=== PATIENT | male | born 1975 | race Caucasian/White ===

== ENCOUNTER 2017-09-21 10:39 | Emergency (ER) | payer OTHER ==
[~2017-09-21] VITALS: Ht 177.8 cm; Wt 83.9 kg
[2017-09-21] MEDS ORDERED: Hydrogen Peroxide 473ml Bottle TOPIC ONE (10:55)
[2017-09-21 10:59] VITALS: BP 133/90
[2017-09-21] MEDS ORDERED: Bacitracin Oint UD TOPIC ONE (11:00)
[2017-09-21] MEDS ORDERED: Tetanus/Diptheria/Pertussis Vaccine 0.5ml Syr IM ONE (11:00)
[2017-09-21] MEDS ORDERED: CEPHALEXIN500 MG ORAL (11:41)
[2017-09-21] MEDS ORDERED: BACITRACIN ZIN1 EACH TOPIC (11:41)
[2017-09-21 11:58] VITALS: BP 124/79
--- NOTE | 2017-09-21 14:36 | Emergency Room Report ---
History of Present Illness General Chief Complaint: Laceration Source: Patient Present Illness HPI Patient 42-year-old male presented after the injury to his left hand and finger. The patient stated he is right-hand dominant. Patient reports having accidentally cut himself with a knife. He was having initially some significant bleeding which had resolved after he applied pressure. Patient denied any fever. Her last tetanus vaccine. He denies any numbness or weakness. Allergies: Coded Allergies: No Known Allergies (Unverified , 09/21/17) Patient History Reviewed Nursing Documentation: PMH: Agreed; PSxH: Agreed Nursing Documentation-PMH Past Medical History: No History, Except For History Of Psychiatric Problem: Yes - Bipolar, anxiety Review of Systems All Other Systems: negative except mentioned in HPI Physical Exam Vital Signs Date Time Temp Pulse Resp B/P (MAP) Pulse Ox O2 Delivery O2 Flow Rate FiO2 09/21/17 10:42 98.1 106 19 133/90 98 98.1 General Appearance: well appearing, no apparent distress, alert, GCS 15 Head: normocephalic, atraumatic ENT: hearing grossly normal, normal voice Neck: full range of motion, supple Respiratory: no respiratory distress, speaking full sentences Gastrointestinal: normal inspection Musculoskeletal: other - finger laceration no active bleeding Neurologic: normal inspection, alert, oriented x3, responsive, normal gait Psychiatric: mood/affect normal Medical Decision Making Diagnostic Impression: Primary Impression: Laceration ER Course Patient presented for laceration. Differential diagnoses included foreign body , nerve injury, arterial injury among others. Patient has a benign exam and does not appear to require any further imaging or laboratory testing at this time. The patient declined x-ray imaging. The patient's wound will be left open due to prolonged time to presentation. The patient is advised to follow up with primary care doctor in 2-3 days. Patient is advised to return if any worsening condition or if any changes in status that are concerning. This report is dictated with [employer] bushing and broach operator software which may occasionally lead to discrepancies related to use of this software. Last Vital Signs Date Time Temp Pulse Resp B/P (MAP) Pulse Ox O2 Delivery O2 Flow Rate FiO2 09/21/17 11:58 98.1 100 19 124/79 99 98.1 Status: improved Disposition: HOME, SELF-CARE Condition: Stable Scripts Cephalexin* (KEFLEX*) 500 Mg Capsule 500 MG ORAL EVERY 12 HOURS, #28 CAP 0 Refills Prov: Nik Moctezuma MD 09/21/17 Bacitracin Zinc* (BACITRACIN ZINC*) 1 Each Packet 1 APPLIC TOPIC THREE TIMES A DAY, #15 PACKET Prov: Nik Moctezuma MD 09/21/17 Patient Instructions: Nonsutured Laceration Care Nik Moctezuma MD Sep 21, 2017 14:35
== END 2017-09-21 11:59 | disposition home or self-care (01) ==
LOC: EMR 10:58
DX: S61.211A Laceration without foreign body of left index finger without damage to nail, initial encounter (principal); W26.0XXA Contact with knife, initial encounter; Y92.9 Unspecified place or not applicable; Z23 Encounter for immunization
CPT/HCPCS: 90471; 90715; 99283

== ENCOUNTER 2017-12-26 09:22 | Inpatient (IN) | payer MEDICAID, OTHER ==
[2017-12-26] VITALS (17 sets, daily range): BP systolic 101–192; BP diastolic 49–121
[~2017-12-26] VITALS: Ht 180.3 cm; Wt 86.6 kg
[~2017-12-26 09:22] MED LIST: BACITRACIN ZIN1 EACH TOPIC; CEPHALEXIN500 MG ORAL
[2017-12-26] MEDS ORDERED: Sodium Chloride 500ML 500 ML IV ONE (09:28)
[2017-12-26] MEDS ORDERED: LORazepam Inj 2mg/ml 1ml ONE (09:30)
[2017-12-26] MEDS ORDERED: LORazepam Inj 2mg/ml 1ml IV ONE ×2 (09:30→10:30)
[2017-12-26 09:41] LABS: BASOPHILS % (AUTO) 1.1 % (0.0-2.0); EOSINOPHILS % (AUTO) 0.4 % (0.0-3.0); HEMATOCRIT 54.8 % (42.0-52.0); LYMPHOCYTES % (AUTO) 16.2 % (20.0-45.0); MEAN CORPUSCULAR VOLUME 89 FL (80-99); MONOCYTES % (AUTO) 12.2 % (1.0-10.0); NEUTROPHILS % (AUTO) 70.2 % (45.0-75.0); PLATELET COUNT 365 K/UL (150-450); RED BLOOD COUNT 6.16 M/UL (4.70-6.10); RED CELL DISTRIBUTION WIDTH 11.3 % (11.6-14.8); WHITE BLOOD COUNT 16.8 K/UL (4.8-10.8)
[2017-12-26 09:48] LABS: ANION GAP 14 mmol/L (5-15); BLOOD UREA NITROGEN 18 mg/dL (7-18); CALCIUM 9.5 MG/DL (8.5-10.1); CARBON DIOXIDE 23 MMOL/L (21-32); CHLORIDE 101 MMOL/L (98-107); CREATININE 1.3 MG/DL (0.55-1.30); POTASSIUM 3.3 MMOL/L (3.5-5.1); SODIUM 138 MMOL/L (136-145)
[2017-12-26 09:54] LABS: APPEARANCE,URINE CLEAR; BILIRUBIN, URINE NEGATIVE (NEGATIVE); COLOR,URINE PALE YELLOW; GLUCOSE, URINE (UA) NEGATIVE (NEGATIVE); KETONES,URINE 2+ (NEGATIVE); LEUKOCYTE ESTERASE ,URINE 1+ (NEGATIVE); NITRITE,URINE NEGATIVE (NEGATIVE); PH,URINE 6 (4.5-8.0); PROTEIN,URINE 2+ (NEGATIVE); UROBILINOGEN,URINE NORMAL MG/DL (0.0-1.0)
[2017-12-26 09:55] LABS: ALANINE AMINOTRANSFERASE 38 U/L (12-78); ALBUMIN 3.5 G/DL (3.4-5.0); ALBUMIN/GLOBULIN RATIO 0.7 (1.0-2.7); ALKALINE PHOSPHATASE 121 U/L (46-116); ASPARTATE AMINO TRANSFERASE 41 U/L (15-37); BILIRUBIN,TOTAL 1.4 MG/DL (0.2-1.0)
--- NOTE | 2017-12-26 10:05 | Diagnostic Imaging Report ---
Indication: Seizure Technique: Contiguous 5 mm thick transaxial imaging of the head obtained in a Siemens Sensation [address] scanner. Soft tissue and bone windows generated. Automatic Exposure Control was utilized. Total Dose length Product (DLP): [address] Dose Index Volume (CTDIvol): 0.15, 70.38 mGy Comparison: none Findings: The size and configuration of the cortical sulci, basal cisterns, and ventricles are within normal limits for age. There is no mass effect, midline shift, or edema identified. There is no evidence of acute hemorrhage or abnormal intra-axial or extra-axial fluid collections. The bones and soft tissues are unremarkable. Impression: No mass effect, edema or acute bleed. The CT scanner at [facility] is accredited by the [employer] and the scans are performed using dose optimization techniques as appropriate to a performed exam including Automatic Exposure control.
[2017-12-26 10:08] LABS: BILIRUBIN,DIRECT 0.2 MG/DL (0.0-0.3)
--- NOTE | 2017-12-26 10:47 | Diagnostic Imaging Report ---
Indication: Dyspnea Comparison: None A single view chest radiograph was obtained. Findings: Interstitium and pulmonary vascularity are prominent. Heart size is borderline. Fixation rods noted in the lower part of the thoracic spine. IMPRESSION: Suspected CHF
[2017-12-26] MEDS ORDERED: AMPHETAMINE SAL15 MG PO (11:55)
[2017-12-26] MEDS ORDERED: ALPRAZOLAM2 MG ORAL (11:55)
[2017-12-26] MEDS ORDERED: CLONIDINE1000 MCG/1 EP (11:55)
--- NOTE | 2017-12-26 12:39 | Emergency Room Report ---
History of Present Illness General Chief Complaint: Seizure Source: Patient, Significant Other, Medical Record Present Illness HPI 42yo M presents with excessive sleepiness and drowsiness, found at home difficult to arouse on the couch last night, per patient's fianc, he uses pills , and apparently drink half a small vial of liquid clonidine injectable formulation sometime last night around 7 or 8 PM. He was drowsy all night last night and the significant other monitored him and noticed that he would have episodes of apnea lasting 10-15 seconds, but then would wake up and refused to come in. Here he had a seizure versus possible syncope in the waiting room, I did not witness it, but patient was standing and then fell flat, and had one or 2 spastic movements. He has no history of seizure disorder. He does admit to using alcohol regularly, but not heavily.patient denies chest pain, shortness of breath, but does report his been having headaches for many months now. Allergies: Coded Allergies: No Known Allergies (Unverified , 09/21/17) Patient History Past Medical History: see triage record Reviewed Nursing Documentation: PMH: Agreed; PSxH: Agreed Nursing Documentation-PMH Past Medical History: No History, Except For Hx Cardiac Problems: No - substance abuse (opioid) Hx Hypertension: No Hx Pacemaker: No Hx Asthma: No Hx COPD: No Hx Diabetes: No Hx Cancer: No Hx Gastrointestinal Problems: No Hx Dialysis: No History Of Psychiatric Problem: Yes - Bipolar Hx Neurological Problems: Yes - T12 Fusion, back surgery Hx Cerebrovascular Accident: No Hx Seizures: No Review of Systems All Other Systems: negative except mentioned in HPI Physical Exam Vital Signs Date Time Temp Pulse Resp B/P (MAP) Pulse Ox O2 Delivery O2 Flow Rate FiO2 12/26/17 09:30 98.2 75 14 131/81 94 Nasal Cannula 4.0 Sp02 EP Interpretation: reviewed, normal General Appearance: alert, mild distress Head: normocephalic Eyes: bilateral eye normal inspection, bilateral eye PERRL, bilateral eye EOMI ENT: normal ENT inspection, hearing grossly normal, normal pharynx, no angioedema, normal voice, moist mucus membranes Neck: normal inspection, full range of motion, supple, supple/symm/no masses Respiratory: chest non-tender, lungs clear, normal breath sounds, no rhonchi, no respiratory distress, no retraction, no accessory muscle use, no wheezing, chest symmetrical, palpation of chest normal Cardiovascular #1: normal peripheral pulses, regular rate, rhythm, no edema, no gallop, no JVD, no murmur, no rub Cardiovascular #2: 2+ radial (R), 2+ radial (L) Gastrointestinal: normal inspection, non tender, soft, no mass, no guarding, no rebound Rectal: deferred Genitourinary: normal inspection, no CVA tenderness Musculoskeletal: back normal, gait/station normal, normal range of motion, non- tender, no calf tenderness Neurologic: alert, responsive, scalp specialist III-XII nml as tested, motor strength/tone normal, sensory intact, speech normal Psychiatric: judgement/insight normal, memory normal, mood/affect normal, no suicidal/homicidal ideation Skin: normal color, no rash, warm/dry, normal turgor Lymphatic: no adenopathy Procedures Critical Care Time Critical Care Time 55 mins excluding all procedures Medical Decision Making Diagnostic Impression: Primary Impression: Syncope Additional Impressions: Elevated troponin Clonidine overdose ER Course Patient took half a bottle of clonidine, liquid injectable form, small 10 mL bile is notable year, but there are no labels as to was prescribed to, and it is not an oral formulation. He also takes Adderall and Xanax. His tox screen is positive for benzodiazepines, his vital signs of been stable, he is not showing signs of hypotension, his troponin level was elevated and repeat troponin his climbing, but he's not having active chest pain, I suspect he may be had a distant demand ischemic episode last night from the clonidine use. He was given aspirin, admitted to Dr. Rausch to the stepdown unit. EKG Diagnostic Results EKG Time: 09:20 EP Interpretation: no stemi Rate: normal Rhythm: NSR ST Segments: no acute changes ASA given to the pt in ED: Yes Rhythm Strip Diag. Results Rhythm Strip Time: 12:35 EP Interpretation: yes Rate: 57 Rhythm: no PVC's, no ectopy Chest X-Ray Diagnostic Results Chest X-Ray Diagnostic Results : Chest X-Ray Ordered: Yes # of Views/Limited/Complete: 1 View Indication: Other EP Interpretation: Yes Interpretation: no consolidation, no effusion, no pneumothorax, no acute cardiopulmonary disease Impression: No acute disease Electronically Signed by: Ximena Jarvis MD CT/MRI/US Diagnostic Results CT/MRI/US Diagnostic Results : Imaging Test Ordered: brain ct Impression no acute dz Last Vital Signs Date Time Temp Pulse Resp B/P (MAP) Pulse Ox O2 Delivery O2 Flow Rate FiO2 12/26/17 10:30 98.2 18 178/110 94 Nasal Cannula 4.0 12/26/17 10:15 75 Disposition: ADMITTED INPATIENT Condition: Stable Referrals: [facility],REFERRING (PCP) XIMENA JARVIS M.D Dec 26, 2017 12:39
[2017-12-26] MEDS ORDERED: Enoxaparin 40mg Inj SUBQ SCH (14:00)
--- NOTE | 2017-12-26 14:41 | Cardiac Electrophysiology PN ---
Subjective Subjective EP consult dictated. [id number] Clonidine induced bradycardia Syncope Could be due to storm or hypotension or both due to Clonidine Echo EF 55% Troponin leak with no CP. DW Dr Horvath Objective Last 24 Hour Vital Signs Date Time Temp Pulse Resp B/P (MAP) Pulse Ox O2 Delivery O2 Flow Rate FiO2 12/26/17 13:43 98.1 55 25 173/105 99 Nasal Cannula 4.0 12/26/17 12:46 57 20 186/116 98 Nasal Cannula 4.0 12/26/17 12:00 56 21 188/119 98 Nasal Cannula 4.0 12/26/17 11:30 57 23 181/111 97 Nasal Cannula 4.0 12/26/17 11:00 56 24 192/117 97 Nasal Cannula 4.0 12/26/17 10:30 98.2 18 178/110 94 Nasal Cannula 4.0 12/26/17 10:15 75 18 Nasal Cannula 4.0 12/26/17 10:15 98.2 18 131/81 94 Nasal Cannula 4.0 12/26/17 09:30 98.2 75 14 131/81 94 Nasal Cannula 4.0 Laboratory Tests Test 12/26/17 09:20 12/26/17 09:30 12/26/17 11:35 Urine Color Pale yellow Urine Appearance Clear Urine pH 6 (4.5-8.0) Urine Specific [place] 1.020 (1.005-1.035) Urine Protein 2+ (NEGATIVE) H Urine Glucose (UA) Negative (NEGATIVE) Urine Ketones 2+ (NEGATIVE) H Urine Blood 2+ (NEGATIVE) H Urine Nitrite Negative (NEGATIVE) Urine Bilirubin Negative (NEGATIVE) Urine Urobilinogen Normal MG/DL (0.0-1.0) Urine Leukocyte Esterase 1+ (NEGATIVE) H Urine RBC 2-4 /HPF (0 - 0) H Urine WBC 0-2 /HPF (0 - 0) Urine Squamous Epithelial Cells Occasional /LPF Urine Bacteria Occasional /HPF (NONE) Urine Opiates Screen Negative (NEGATIVE) Urine Barbiturates Screen Negative (NEGATIVE) Phencyclidine (PCP) Screen Negative (NEGATIVE) Urine Amphetamines Screen Negative (NEGATIVE) Urine Benzodiazepines Screen Positive (NEGATIVE) H Urine Cocaine Screen Negative (NEGATIVE) Urine Marijuana (THC) Screen Negative (NEGATIVE) White Blood Count 16.8 K/UL (4.8-10.8) H Red Blood Count 6.16 M/UL (4.70-6.10) H Hemoglobin 18.0 G/DL (14.2-18.0) Hematocrit 54.8 % (42.0-52.0) H Mean Corpuscular Volume 89 FL (80-99) Mean Corpuscular Hemoglobin 29.2 PG (27.0-31.0) Mean Corpuscular Hemoglobin Concent 32.8 G/DL (32.0-36.0) Red Cell Distribution Width 11.3 % (11.6-14.8) L Platelet Count 365 K/UL (150-450) Mean Platelet Volume 7.5 FL (6.5-10.1) Neutrophils (%) (Auto) 70.2 % (45.0-75.0) Lymphocytes (%) (Auto) 16.2 % (20.0-45.0) L Monocytes (%) (Auto) 12.2 % (1.0-10.0) H Eosinophils (%) (Auto) 0.4 % (0.0-3.0) Basophils (%) (Auto) 1.1 % (0.0-2.0) Sodium Level 138 MMOL/L (136-145) Potassium Level 3.3 MMOL/L (3.5-5.1) L Chloride Level 101 MMOL/L (98-107) Carbon Dioxide Level 23 MMOL/L (21-32) Anion Gap 14 mmol/L (5-15) Blood Urea Nitrogen 18 mg/dL (7-18) Creatinine 1.3 MG/DL (0.55-1.30) Estimat Glomerular Filtration Rate > 60 mL/min (>60) Glucose Level 164 MG/DL (74-106) H Calcium Level 9.5 MG/DL (8.5-10.1) Total Bilirubin 1.4 MG/DL (0.2-1.0) H Direct Bilirubin 0.2 MG/DL (0.0-0.3) Aspartate Amino Transf (AST/SGOT) 41 U/L (15-37) H Alanine Aminotransferase (ALT/SGPT) 38 U/L (12-78) Alkaline Phosphatase 121 U/L (46-116) H Troponin I 0.356 ng/mL (0.000-0.056) 0.449 ng/mL (0.000-0.056) Total Protein 8.4 G/DL (6.4-8.2) H Albumin 3.5 G/DL (3.4-5.0) Globulin 4.9 g/dL Albumin/Globulin Ratio 0.7 (1.0-2.7) L Salicylates Level 2.6 ug/mL (2.8-20) L Acetaminophen Level 2 MCG/ML (10-30) L Phenytoin (Dilantin) Level 1.8 ug/mL (10-20) L Valproic Acid (Depakene) Level < 3 MCG/ML (50-100) L Carbamazepine (Tegretol) Level < 0.5 ug/mL (4.0-12.0) L Phenobarbital Level 1.2 ug/mL (15-40) L Serum Alcohol < 3 mg/dL HIV (1&2) Antibody Rapid Negative (NEGATIVE) Richard Conroy MD Dec 26, 2017 14:41
[2017-12-26] MEDS: HydrALAZINE 50mg tab ORAL SCH ×2 (14:54→22:03)
--- NOTE | 2017-12-26 15:28 | Infectious Diseases Prog Note ---
Assessment/Plan Problems: (1) Sepsis Assessment & Plan: with leukocytosis , will start ceftriaxone and azithromycin , pending blood culture (2) Pneumonia Assessment & Plan: suspect possible aspiration will start ceftriaxon and zithromax empirically , with aspiration precaution , keep HOB > 30 degree all the time (3) Syncope Subjective Allergies: Coded Allergies: No Known Allergies (Unverified , 09/21/17) Objective Vital Signs Last 24 Hour Vital Signs Date Time Temp Pulse Resp B/P (MAP) Pulse Ox O2 Delivery O2 Flow Rate FiO2 12/26/17 14:54 177/110 12/26/17 14:00 Nasal Cannula 2.0 Nasal Cannula 2.0 Nasal Cannula 2.0 12/26/17 13:43 98.1 55 25 173/105 99 Nasal Cannula 4.0 12/26/17 12:46 57 20 186/116 98 Nasal Cannula 4.0 12/26/17 12:00 56 21 188/119 98 Nasal Cannula 4.0 12/26/17 11:30 57 23 181/111 97 Nasal Cannula 4.0 12/26/17 11:00 56 24 192/117 97 Nasal Cannula 4.0 12/26/17 10:30 98.2 18 178/110 94 Nasal Cannula 4.0 12/26/17 10:15 75 18 Nasal Cannula 4.0 12/26/17 10:15 98.2 18 131/81 94 Nasal Cannula 4.0 12/26/17 09:30 98.2 75 14 131/81 94 Nasal Cannula 4.0 Height (Feet): 5 Height (Inches): 9.00 Weight (Pounds): 160 Laboratory Tests Test 12/26/17 09:20 12/26/17 09:30 12/26/17 11:35 Urine Color Pale yellow Urine Appearance Clear Urine pH 6 (4.5-8.0) Urine Specific [place] 1.020 (1.005-1.035) Urine Protein 2+ (NEGATIVE) H Urine Glucose (UA) Negative (NEGATIVE) Urine Ketones 2+ (NEGATIVE) H Urine Blood 2+ (NEGATIVE) H Urine Nitrite Negative (NEGATIVE) Urine Bilirubin Negative (NEGATIVE) Urine Urobilinogen Normal MG/DL (0.0-1.0) Urine Leukocyte Esterase 1+ (NEGATIVE) H Urine RBC 2-4 /HPF (0 - 0) H Urine WBC 0-2 /HPF (0 - 0) Urine Squamous Epithelial Cells Occasional /LPF Urine Bacteria Occasional /HPF (NONE) Urine Opiates Screen Negative (NEGATIVE) Urine Barbiturates Screen Negative (NEGATIVE) Phencyclidine (PCP) Screen Negative (NEGATIVE) Urine Amphetamines Screen Negative (NEGATIVE) Urine Benzodiazepines Screen Positive (NEGATIVE) H Urine Cocaine Screen Negative (NEGATIVE) Urine Marijuana (THC) Screen Negative (NEGATIVE) White Blood Count 16.8 K/UL (4.8-10.8) H Red Blood Count 6.16 M/UL (4.70-6.10) H Hemoglobin 18.0 G/DL (14.2-18.0) Hematocrit 54.8 % (42.0-52.0) H Mean Corpuscular Volume 89 FL (80-99) Mean Corpuscular Hemoglobin 29.2 PG (27.0-31.0) Mean Corpuscular Hemoglobin Concent 32.8 G/DL (32.0-36.0) Red Cell Distribution Width 11.3 % (11.6-14.8) L Platelet Count 365 K/UL (150-450) Mean Platelet Volume 7.5 FL (6.5-10.1) Neutrophils (%) (Auto) 70.2 % (45.0-75.0) Lymphocytes (%) (Auto) 16.2 % (20.0-45.0) L Monocytes (%) (Auto) 12.2 % (1.0-10.0) H Eosinophils (%) (Auto) 0.4 % (0.0-3.0) Basophils (%) (Auto) 1.1 % (0.0-2.0) Sodium Level 138 MMOL/L (136-145) Potassium Level 3.3 MMOL/L (3.5-5.1) L Chloride Level 101 MMOL/L (98-107) Carbon Dioxide Level 23 MMOL/L (21-32) Anion Gap 14 mmol/L (5-15) Blood Urea Nitrogen 18 mg/dL (7-18) Creatinine 1.3 MG/DL (0.55-1.30) Estimat Glomerular Filtration Rate > 60 mL/min (>60) Glucose Level 164 MG/DL (74-106) H Calcium Level 9.5 MG/DL (8.5-10.1) Total Bilirubin 1.4 MG/DL (0.2-1.0) H Direct Bilirubin 0.2 MG/DL (0.0-0.3) Aspartate Amino Transf (AST/SGOT) 41 U/L (15-37) H Alanine Aminotransferase (ALT/SGPT) 38 U/L (12-78) Alkaline Phosphatase 121 U/L (46-116) H Troponin I 0.356 ng/mL (0.000-0.056) 0.449 ng/mL (0.000-0.056) Total Protein 8.4 G/DL (6.4-8.2) H Albumin 3.5 G/DL (3.4-5.0) Globulin 4.9 g/dL Albumin/Globulin Ratio 0.7 (1.0-2.7) L Salicylates Level 2.6 ug/mL (2.8-20) L Acetaminophen Level 2 MCG/ML (10-30) L Phenytoin (Dilantin) Level 1.8 ug/mL (10-20) L Valproic Acid (Depakene) Level < 3 MCG/ML (50-100) L Carbamazepine (Tegretol) Level < 0.5 ug/mL (4.0-12.0) L Phenobarbital Level 1.2 ug/mL (15-40) L Serum Alcohol < 3 mg/dL HIV (1&2) Antibody Rapid Negative (NEGATIVE) Current Medications Medications (Trade) Dose Ordered Sig/Eliezer Route PRN Reason Start Time Stop Time Status Last Admin Dose Admin Acetaminophen (Tylenol) 650 mg Q4H PRN ORAL Mild Pain (Pain Scale 1-3) 12/26/17 14:00 01/25/18 13:59 Aspirin (ASA) 325 mg DAILY ORAL 12/26/17 14:15 12/26/17 23:59 12/26/17 14:14 Azithromycin 500 mg/Dextrose 275 ml @ 275 mls/hr Q24HRS IV 12/26/17 16:00 01/01/18 16:59 Ceftriaxone Sodium 2 gm/ Dextrose 55 ml @ 110 mls/hr Q24H IVPB 12/26/17 15:30 01/02/18 15:29 Dextrose (Dextrose 50%) 25 ml Q30M PRN IV Hypoglycemia 12/26/17 14:00 01/25/18 13:59 Dextrose (Dextrose 50%) 50 ml Q30M PRN IV Hypoglycemia 12/26/17 14:00 12/2/18 13:59 Enoxaparin Sodium (Lovenox) 40 mg Q24H SUBQ 12/26/17 14:00 01/25/18 13:59 12/26/17 14:56 Hydralazine HCl (Apresoline) 10 mg Q2H PRN IV SBP> 170 mmHg 12/26/17 14:45 01/25/18 14:44 Hydralazine HCl (Apresoline) 50 mg Q8HR ORAL 12/26/17 14:00 01/25/18 13:59 12/26/17 14:54 Ondansetron HCl (Zofran) 4 mg Q6H PRN IVP Nausea & Vomiting 12/26/17 14:00 01/25/18 13:59 Sodium Chloride 1,000 ml @ 100 mls/hr Q10H IVLG 12/26/17 14:00 01/25/18 13:59 12/26/17 14:30 Cirilo Nunez M.D. Dec 26, 2017 15:28
[2017-12-26] MEDS ORDERED: cefTRIAXone 2 GM in D5W 55 ML IVPB SCH (15:30)
[2017-12-26] MEDS ORDERED: Azithromycin 500 MG in D5W 275 ML IV SCH (16:00)
--- NOTE | 2017-12-26 18:15 | Consultation ---
DATE OF CONSULTATION: 12/26/2017 CONSULTING PHYSICIAN: Cirilo Nunez M.D. REFERRING PHYSICIAN: Johnathan Rausch M.D. REASON FOR CONSULTATION: Pneumonia with leukocytosis, possible aspiration. Recommendation for antibiotics treatment. HISTORY OF PRESENT ILLNESS: The patient is a 42-year-old male with past medical history of bipolar disorder, back surgery with T12 fusion, and hypertension, who presented to [facility] with drowsiness and excessive sleepiness. He was found at home difficult to arouse on the couch last night by his fiancee. He took some pills, apparently took half of small vial of liquid clonidine and he was drowsy all night, and possibly Ativan or Xanax. He was noticed to have apnea at home by his fiancee which lasted 15 seconds and he would wake up and refused to come to the emergency room. The patient collapsed in the waiting room in the ER. Unclear whether he had a syncopal episode or seizure when he was standing and then fell flat and had one to two spastic movements. He has no history of seizure disorder before. He uses alcohol on a regular basis, but not heavily. Denied any cough or shortness of breath. Denied any fever or chills. Denied any recent upper respiratory infection. In the ED, he had pulse ox of 94% on 4 L nasal cannula. His troponin also was found to be elevated. Extensive workup revealed leukocytosis with white count of 16,800, so Infectious Disease consultation was requested for antibiotics treatment and further management. As of note, the patient is drowsy, incoherent, mumbling, could not provide good history. History was mainly obtained from the medical record in the emergency room and nursing staff. PAST MEDICAL HISTORY: Bipolar disorder, back surgery with T12 fusion, and hypertension. PAST SURGICAL HISTORY: He had T12 fusion. SOCIAL HISTORY: The patient lives at home with dolly. He drinks alcohol almost on a daily basis. Unclear whether he used drugs or not, or he uses tobacco. Further history unable to obtain. ALLERGIES: He has no known drug allergy. MEDICATIONS: He is on hydralazine, Lovenox, and aspirin. LABORATORY DATA: Showed white count 16.8, hemoglobin 18, and platelet count 365,000. BUN 18 and creatinine 1.3. AST 41, ALT 58. Urinalysis showed negative nitrite, +1 leukocyte esterase, and wbc's 0 to 2. Toxicology came back positive for benzodiazepine and salicylate. PHYSICAL EXAMINATION: VITAL SIGNS: Temperature 98.1, pulse 55, respirations 25, and blood pressure 173/105. Saturation 99% on 4 L nasal cannula. GENERAL: Young male, awake, lethargic, confused, disoriented sweating, lying in bed, not agitated. HEENT: Normocephalic and atraumatic. Mildly reactive pupils on both sides. Anicteric sclerae. Moist oral mucosa. Dry old food like material in his mouth. NECK: Supple. No lymphadenopathy. CARDIOVASCULAR: Regular rate and rhythm. No murmur. LUNGS: He has diminished breathing sounds at the bases. No wheezing or rhonchi. ABDOMEN: Soft, nontender, and nondistended. Normal bowel sounds. No hepatosplenomegaly or ascites. EXTREMITIES: No edema or cyanosis. ASSESSMENT AND RECOMMENDATION: 1. Sepsis with leukocytosis. We will start ceftriaxone and Zithromax to cover for pneumonia and send blood culture. 2. Pneumonia, community-acquired most likely, suspect aspiration too. We will start ceftriaxone and Zithromax empiric coverage with aspiration precaution. Keep head of bed more than 30 degrees. We will send urine antigen for Legionella and serum mycoplasma serology. We will monitor the patient closely. 3. Syncope suspect due to benzodiazepine and clonidine overdose. Continue tele monitor. Cardiology is following. Avoid sedative. Thank you for the consult. ID will continue to follow. Cirilo Nunez M.D. DR: DEBORAH JOB#: [id number] CC:
[2017-12-26] MEDS ORDERED: ALPRAZolam 0.5mg tab ORAL PRN (18:45)
--- NOTE | 2017-12-26 19:15 | Consultation ---
DATE OF CONSULTATION: 12/26/2017 CONSULTING PHYSICIAN: Johnathan Rausch M.D. REFERRING PHYSICIAN: Beck Horvath M.D. REASON FOR CONSULTATION: 1. Hypertension management. 2. Acute kidney injury. HISTORY OF PRESENT ILLNESS: The patient is a 42-year-old gentleman with bipolar disorder who is being admitted for further evaluation and care of elevated troponins in light of large dose of liquid clonidine. Troponins are currently elevated. At bedside, girlfriend says that he took this liquid clonidine half of the bottle approximately 18 to 24 hours ago and that his new-onset slurred speech occurred shortly after. The patient is diaphoretic and has an elevated white count of 16.8. PAST MEDICAL HISTORY: 1. Bipolar disorder. 2. Lower back pain. SOCIAL HISTORY: Positive for tobacco and alcohol use. No illicit drug use. FAMILY HISTORY: Noncontributory. REVIEW OF SYSTEMS: NEUROLOGIC: The patient complaining of headache. No change in vision. CARDIAC: No chest pain or palpitations. PULMONARY: No difficulty breathing, productive cough, or sputum. GASTROINTESTINAL/GENITOURINARY: No change in urine or bowel habits. No nausea, vomiting, or diarrhea. ENDOCRINOLOGY: The patient having some sweats and fevers. MUSCULOSKELETAL: The patient feeling weak, tired, and fatigued. LABORATORY DATA: Labs dated 12/26/2017, white cell count 16.8, hemoglobin 18, and platelet count 365. Potassium 3.3, creatinine 1.3, and sodium 138. PHYSICAL EXAMINATION: VITAL SIGNS: Blood pressure 177/110, pulse 55, and temperature 98.1. GENERAL: The patient is awake, mildly confused, and disoriented with slurred speech. HEENT: Extraocular muscles intact. No lymphadenopathy noted. CARDIOVASCULAR: S1, S2. No rubs or gallops. PULMONARY: Clear to auscultation bilaterally. No rales, rhonchi, or wheezes. ABDOMEN: Nondistended and nontender. EXTREMITIES: No edema noted. ASSESSMENT AND PLAN: 1. Hypertension. The patient seemingly may have taken too much liquid clonidine. At this time, hydralazine will be initiated and alternative antihypertensive medications, which will not worsen his bradycardia. 2. Slurred speech. Defer to primary care physician and Neurology. 3. Acute kidney injury with creatinine 1.3, most likely secondary to component of volume depletion. We will aggressively hydrate the patient and recheck laboratories in a.m. No further renal investigations required at this time. 4. Clonidine overdose. Continue aggressive hydration. Stabilization of blood pressure and heart rate. Cardiology has also been consulted. 5. Leukocytosis. Elevated white count. Rule out any infectious source. Johnathan Rausch MD DR: ESTELA JOB#: [id number] CC:
--- NOTE | 2017-12-26 23:15 | Consultation ---
DATE OF CONSULTATION: 12/26/2017 CARDIOLOGY CONSULTATION CONSULTING PHYSICIAN: Richard Conroy M.D. REFERRING PHYSICIAN: Johnathan Rausch M.D. REASON FOR CONSULTATION: Elevated troponin and accelerated hypertension. HISTORY OF PRESENT ILLNESS: The patient is a 42-year-old gentleman with history of hypertension, who was brought to the emergency room because the patient had drowsiness being found at home difficult to arouse on the couch. The patient's fiancee uses pills and apparently got a small vial of liquid clonidine and he took formulation 7-8 p.m. He was drowsy all night long and also had episodes of apnea of 10 to 15 seconds, but he would wake up, but he refused to come to the emergency room. The patient apparently had seizure versus syncopal episode in the waiting room even though it was not witnessed directly. The patient was had one or two spastic movements. The patient however admits to drinking alcohol regularly. The patient's initial troponin was elevated. The patient was admitted to intensive care unit. Cardiology consultation was obtained for further evaluation and management. REVIEW OF SYSTEMS: Negative other than what was mentioned in history of present illness. Even though he is still drowsy, he specifically denies prior myocardial infarction or chest pain. PAST MEDICAL HISTORY: Includes history of bipolar disorder and T12 fusion back surgery. PHYSICAL EXAMINATION: VITAL SIGNS: Show blood pressure 172/105, pulse 55, respirations 25, and temperature 98.1. HEAD AND NECK: Showed no JVD. LUNGS: Clear. CARDIOVASCULAR: Regular S1 and S2 with no gallop or murmur. ABDOMEN: Soft. EXTREMITIES: No pitting edema. LABORATORY AND DIAGNOSTIC DATA: His EKG showed sinus bradycardia, rate 57 with incomplete right bundle-branch block. Labs show white count 16.8, hemoglobin 18, hematocrit 54.8, platelets 265,000. Sodium 138, potassium 3.3, BUN of 18, creatinine 1.3, glucose 164. Troponin is 0.35 and 0.449. His toxicology is positive for benzodiazepine. ASSESSMENT AND PLAN: 1. Troponin elevation. EKG does not show any acute ischemic changes. The levels are flat. We will repeat EKG and get an echocardiogram to evaluate for ejection fraction and wall motion abnormality. Continue on aspirin at this time. We will check fasting lipid profile. 2. Bradycardia, likely due to clonidine overdose. We will watch the patient on telemetry. Heart rate is still in the 50s. 3. Accelerated hypertension. Blood pressure was as high as 190/117. The patient is already on hydralazine 60 mg every 8 hours. We will adjust the medication. 4. Syncope versus seizure. It could be due to drug overdose with clonidine that can cause bradycardia. Thank you very much, Dr. Rausch, for allowing me to participate in the care of this patient. Please do not hesitate to contact me for any questions regarding my evaluation. Richard Conroy M.D. DR: Dick JOB#: [id number] CC:
[2017-12-27] VITALS (13 sets, daily range): BP systolic 101–160; BP diastolic 57–106
[2017-12-27 05:13] LABS: BASOPHILS % (AUTO) 1.1 % (0.0-2.0); EOSINOPHILS % (AUTO) 2.6 % (0.0-3.0); HEMATOCRIT 43.9 % (42.0-52.0); HEMOGLOBIN 14.9 G/DL (14.2-18.0); LYMPHOCYTES % (AUTO) 18.9 % (20.0-45.0); MEAN CORPUSCULAR VOLUME 88 FL (80-99); MONOCYTES % (AUTO) 10.6 % (1.0-10.0); NEUTROPHILS % (AUTO) 66.7 % (45.0-75.0); PLATELET COUNT 240 K/UL (150-450); RED CELL DISTRIBUTION WIDTH 11.4 % (11.6-14.8)
[2017-12-27 05:30] LABS: ANION GAP 9 mmol/L (5-15); BLOOD UREA NITROGEN 12 mg/dL (7-18); CALCIUM 8.7 MG/DL (8.5-10.1); CARBON DIOXIDE 28 MMOL/L (21-32); CHLORIDE 100 MMOL/L (98-107); POTASSIUM 3.5 MMOL/L (3.5-5.1); SODIUM 137 MMOL/L (136-145)
--- NOTE | 2017-12-27 05:49 | Nephrology Progress Note ---
Assessment/Plan Assessment/Plan A/P 1) LALO- Resolved with hydration. Cr down to 1 2) Clonidine OD- bradycardic, patient more coherent this am - continue to monitor 3) Tob Dep- nicotine patch 4) PSY D/O- per PCP 5) HTN- improved- adjust hydralazine Subjective Date patient seen: Dec 27, 2017 Time patient seen: 05:46 ROS Limited/Unobtainable: No Constitutional: Reports: weakness Neurologic/Psychiatric: Reports: headache Allergies: Coded Allergies: No Known Allergies (Unverified , 09/21/17) All Systems: reviewed and negative except above Subjective Patient improved. Speech has improved. C/O DANIELS Objective Last 24 Hour Vital Signs Date Time Temp Pulse Resp B/P (MAP) Pulse Ox O2 Delivery O2 Flow Rate FiO2 12/27/17 05:00 49 18 141/99 (113) 97 12/27/17 04:00 Nasal Cannula 2.0 Nasal Cannula 2.0 12/27/17 04:00 98.6 51 18 139/93 (108) 98 12/27/17 03:00 48 18 134/94 (107) 98 12/27/17 02:00 50 18 148/97 (114) 98 12/27/17 01:00 52 20 140/91 (107) 95 12/27/17 00:00 98.9 74 18 145/98 (114) 95 12/27/17 00:00 Nasal Cannula 2.0 Nasal Cannula 2.0 12/26/17 23:00 50 18 146/103 (117) 97 12/26/17 22:03 119/106 12/26/17 22:00 45 18 114/95 (101) 97 12/26/17 21:00 56 18 119/106 (110) 97 12/26/17 20:00 Nasal Cannula 2.0 Nasal Cannula 2.0 12/26/17 20:00 98.4 64 23 101/49 (66) 96 12/26/17 19:00 61 18 158/104 (122) 96 12/26/17 18:00 99.0 61 18 152/118 (129) 96 12/26/17 17:00 65 23 158/103 (121) 96 12/26/17 16:00 58 21 169/108 (128) 96 12/26/17 16:00 Nasal Cannula 2.0 Nasal Cannula 2.0 12/26/17 16:00 62 12/26/17 15:00 61 23 180/121 (140) 96 12/26/17 14:54 177/110 12/26/17 14:00 59 22 177/110 (132) 96 12/26/17 14:00 Nasal Cannula 2.0 Nasal Cannula 2.0 Nasal Cannula 2.0 12/26/17 13:43 98.1 55 25 173/105 99 Nasal Cannula 4.0 12/26/17 13:40 99.2 61 20 153/118 (130) 96 12/26/17 12:46 57 20 186/116 98 Nasal Cannula 4.0 12/26/17 12:00 56 21 188/119 98 Nasal Cannula 4.0 12/26/17 11:30 57 23 181/111 97 Nasal Cannula 4.0 12/26/17 11:00 56 24 192/117 97 Nasal Cannula 4.0 12/26/17 10:30 98.2 18 178/110 94 Nasal Cannula 4.0 12/26/17 10:15 75 18 Nasal Cannula 4.0 12/26/17 10:15 98.2 18 131/81 94 Nasal Cannula 4.0 12/26/17 09:30 98.2 75 14 131/81 94 Nasal Cannula 4.0 Intake and Output 12/26/17 12/27/17 18:59 06:59 Intake Total 1330 ml 1320 ml Output Total 520 ml 500 ml Balance 810 ml 820 ml Intake Oral 320 ml IV Total 1330 ml 1000 ml Output Urine Total 520 ml 500 ml Laboratory Tests 12/26/17 09:20: Urine Color Pale yellow, Urine Appearance Clear, Urine pH 6, Urine Specific B[place] 1.020, Urine Protein 2+H, Urine Glucose (UA) Negative, Urine Ketones 2+H , Urine Blood 2+H, Urine Nitrite Negative, Urine Bilirubin Negative, Urine Urobilinogen Normal, Urine Leukocyte Esterase 1+H, Urine RBC 2-4H, Urine WBC 0-2 , Urine Squamous Epithelial Cells Occasional, Urine Bacteria Occasional, Urine Opiates Screen Negative, Urine Barbiturates Screen Negative, Phencyclidine (PCP ) Screen Negative, Urine Amphetamines Screen Negative, Urine Benzodiazepines Screen PositiveH, Urine Cocaine Screen Negative, Urine Marijuana (THC) Screen Negative 12/26/17 09:30: White Blood Count 16.8H, Red Blood Count 6.16H, Hemoglobin 18.0, Hematocrit 54.8H, Mean Corpuscular Volume 89, Mean Corpuscular Hemoglobin 29.2, Mean Corpuscular Hemoglobin Concent 32.8, Red Cell Distribution Width 11.3L, Platelet Count 365, Mean Platelet Volume 7.5, Neutrophils (%) (Auto) 70.2, Lymphocytes (%) (Auto) 16.2L, Monocytes (%) (Auto) 12.2H, Eosinophils (%) (Auto ) 0.4, Basophils (%) (Auto) 1.1, Sodium Level 138, Potassium Level 3.3L, Chloride Level 101, Carbon Dioxide Level 23, Anion Gap 14, Blood Urea Nitrogen 18, Creatinine 1.3, Estimat Glomerular Filtration Rate > 60, Glucose Level 164H , Calcium Level 9.5, Total Bilirubin 1.4H, Direct Bilirubin 0.2, Aspartate Amino Transf (AST/SGOT) 41H, Alanine Aminotransferase (ALT/SGPT) 38, Alkaline Phosphatase 121H, Troponin I 0.356H, Total Protein 8.4H, Albumin 3.5, Globulin 4.9, Albumin/Globulin Ratio 0.7L, Salicylates Level 2.6L, Acetaminophen Level 2L , Phenytoin (Dilantin) Level 1.8L, Valproic Acid (Depakene) Level < 3L, Carbamazepine (Tegretol) Level < 0.5L, Phenobarbital Level 1.2L, Serum Alcohol < 3, HIV (1&2) Antibody Rapid Negative 12/26/17 11:35: Troponin I 0.449H 12/26/17 15:00: Urine Legionella Antigen [Pending] 12/26/17 15:20: Urine Legionella Antigen [Pending] 12/26/17 15:30: Hepatitis A IgM Antibody [Pending], Hepatitis B Surface Antigen [Pending], Hepatitis B Core IgM Antibody [Pending], Hepatitis C Antibody [Pending], Mycoplasma pneumoniae IgM Ab Titer [Pending] 12/26/17 19:00: Troponin I 0.718H 12/27/17 03:05: Troponin I 0.499H, White Blood Count 11.0H, Red Blood Count 5.00, Hemoglobin 14.9, Hematocrit 43.9, Mean Corpuscular Volume 88, Mean Corpuscular Hemoglobin 29.8, Mean Corpuscular Hemoglobin Concent 33.9, Red Cell Distribution Width 11.4L, Platelet Count 240, Mean Platelet Volume 7.4, Neutrophils (%) (Auto) 66.7 , Lymphocytes (%) (Auto) 18.9L, Monocytes (%) (Auto) 10.6H, Eosinophils (%) ( Auto) 2.6, Basophils (%) (Auto) 1.1 12/27/17 04:05: Sodium Level 137, Potassium Level 3.5, Chloride Level 100, Carbon Dioxide Level 28, Anion Gap 9, Blood Urea Nitrogen 12, Creatinine 1.0, Estimat Glomerular Filtration Rate > 60, Glucose Level 123H, Calcium Level 8.7, Thyroid Stimulating Hormone (TSH) 1.339 Height (Feet): 5 Height (Inches): 11.00 Weight (Pounds): 191 General Appearance: no apparent distress, alert, agitated EENT: normal ENT inspection Neck: normal alignment, supple Cardiovascular: normal rate, regular rhythm Respiratory/Chest: lungs clear, normal breath sounds Abdomen: non tender, soft Edema: no edema noted Arm (L), no edema noted Arm (R), no edema noted Leg (L), no edema noted Leg (R), no edema noted Pedal (L), no edema noted Pedal (R), no edema noted Generalized Johnathan Rausch MD Dec 27, 2017 05:49
[2017-12-27] MEDS: HydrALAZINE 50mg tab ORAL SCH (07:06)
--- NOTE | 2017-12-27 10:24 | History & Physical ---
History and Physical History & Physicial HISTORY OF PRESENT ILLNESS: The patient is a 42-year-old gentleman with history of hypertension, who was brought to the emergency room because the patient had drowsiness being found at home difficult to arouse on the couch. The patient's fiancee uses pills and apparently got a small vial of liquid clonidine and he took formulation 7-8 p.m. He was drowsy all night long and also had episodes of apnea of 10 to 15 seconds, but he would wake up, but he refused to come to the emergency room. The patient apparently had seizure versus syncopal episode in the waiting room even though it was not witnessed directly. The patient however admits to drinking alcohol regularly. The patient's initial troponin was elevated. The patient was admitted to intensive care unit. Cardiology consultation was obtained for further evaluation and management. REVIEW OF SYSTEMS: Negative other than what was mentioned in history of present illness. Even though he is still drowsy, he specifically denies prior myocardial infarction or chest pain. PAST MEDICAL HISTORY: Includes history of bipolar disorder and T12 fusion back surgery. He reports anxiety. PHYSICAL EXAMINATION: VITAL SIGNS: Show blood pressure 172/100, pulse 64, respirations 25, and temperature 98.1. HEAD AND NECK: Showed no JVD. LUNGS: Clear. CARDIOVASCULAR: Regular S1 and S2 with no gallop or murmur. ABDOMEN: Soft. EXTREMITIES: No pitting edema. LABORATORY AND DIAGNOSTIC DATA: His EKG showed sinus bradycardia, rate 57 with incomplete right bundle-branch block. Labs show white count 16.8, hemoglobin 18, hematocrit 54.8, platelets 265,000. Sodium 138, potassium 3.3, BUN of 18, creatinine 1.3, glucose 164. Troponin is 0.35 and 0.449. His toxicology is positive for benzodiazepine. ASSESSMENT AND PLAN: 1. Troponin elevation. EKG does not show any acute ischemic changes. The levels are flat. I will repeat EKG and get an echocardiogram to evaluate for ejection fraction and wall motion abnormality. Continue on aspirin at this time. I will check fasting lipid profile. 2. Bradycardia, likely due to clonidine overdose. I will watch the patient on telemetry. Heart rate much better. 3. Accelerated hypertension. Blood pressure was as high as 190/117. The patient is already on hydralazine 60 mg every 8 hours. Will adjust the medication. 4. Syncope versus seizure. It could be due to drug overdose with clonidine that can cause bradycardia. Doing much better after overnight monitoring , diet and Xanax will dc home Thai Cruz Omar Syed MD Dec 27, 2017 10:24
[2017-12-27] MEDS ORDERED: XANAX0.5 MG ORAL (10:27)
[2017-12-27] MEDS ORDERED: Tubing IV Secondary IV ONE (11:59)
--- NOTE | 2017-12-27 14:39 | Cardiology Report ---
APPROVED REPORT EXAM: Two-dimensional and M-mode echocardiogram with Doppler and color Doppler. INDICATION Elevated Troponin M-Mode DIMENSIONS IVSd1.1 (0.7-1.1cm)Left Atrium (MM)3.7 (1.6-4.0cm) LVDd4.8 (3.5-5.6cm)Aortic Root2.9 (2.0-3.7cm) PWd0.8 (0.7-1.1cm)Aortic Cusp Exc.2.0 (1.5-2.0cm) LVDs3.2 (2.5-4.0cm) PWs1.6 cm Normal left ventricular chamber size, systolic function and wall motion. Left ventricular ejection fraction estimated to be 55 %. Borderline left ventricular hypertrophy. No evidence of pericardial effusion. Mild left atrial enlargement. Right atrial size at upper limits of normal. Right ventricular chamber sizes is within normal limits. Normal appearing aortic, mitral, pulmonic and tricuspid valves. Mild mitral annulus and aortic root calcification. IVC measured at 2.0 cm with physiological collapse, suggestive of increased RA pressure. A color flow and spectral Doppler study was performed and revealed: No aortic insufficiency. Mild to moderate mitral regurgitation. Mitral diastolic velocities c/w pseudo-normal LV physiology suggestive of moderately elevated LA pressure. Mild tricuspid regurgitation. Tricuspid systolic velocities suggests peak right ventricular systolic pressure of 53 mmHg, consistent with moderate pulmonary hypertension. No pulmonic regurgitation present.
--- NOTE | 2017-12-27 15:02 | Cardiology Report ---
APPROVED REPORT EKG Measurement Heart [id number] Sinus bradycardia Septal infarct, age undetermined Abnormal ECG
--- NOTE | 2017-12-27 15:02 | Cardiology Report ---
APPROVED REPORT EKG Measurement Heart [id number] Normal sinus rhythm Possible Left atrial enlargement Borderline ECG
--- NOTE | 2017-12-29 15:22 | Discharge Summary ---
Discharge Summary Discharge Summary _ DATE OF ADMISSION: 12/26/2017 DATE OF DISCHARGE: 12/27/2017 REASON FOR ADMISSION: 42 years old male with past medical history of hypertension , was brought to emergency room for evaluation . Apparently at home patient was drowsy and difficult to arouse. Patient apparently tool liquid clonidine , was drowsy and had episodes of apnea of 10-15 seconds, according to fianc. Then he would wake up and refused to come to emergency department. Patient apparently had a syncopal episode versus seizure while waiting, which was not witnessed. Patient admitted to drinking alcohol on a regular basis. Upon evaluation blood pressure was significantly elevated up to - 190/117 . Laboratory workup revealed elevated troponin 0.356. WBC 16.8 Potassium 3.3. BUN 18, creatinine 1.3. EKG showed sinus bradycardia with incomplete right bundle branch block, but no acute ischemic changes. Chest x-ray showed prominent interstitial and pulmonary vasculature. CT of the head revealed no acute intracranial pathology . Urine toxicology screen was positive for benzodiazepine . Patient was given Aspirin in ED. Patient admitted with diagnoses of troponin elevation, bradycardia likely due to clonidine overdose, accelerated hypertension, syncope versus seizure. CONSULTANTS: sap trainer Dr. Marycarmen ACE specialist Dr. Nunez career and guidance counselor Dr. Johns [facility]: Patient admitted initially to intensive care unit . Cardiology consult was requested. Patient was continued with antiplatelet therapy with Aspirin. Patient was followed up with serial troponin. Troponin levels remained flat. Patient remained asymptomatic : no cardiac complaints, no chest pain or shortness of breath. Pulse oximetry stable on room air. EKG revealed no acute ischemic changes. Echocardiogram revealed preserved ejection fraction 55%, borderline left ventricular hypertrophy, no wall motion abnormality. Right ventricular systolic pressure of 54 consistent with moderate pulmonary hypertension. [id number] mitral regurgitation. Building And Construction Manager closely followed . Per sap trainer , troponin elevation was likely due to troponin leak. Patient had flat levels, remained asymptomatic, and no acute ischemic changes on EKG. Patient was transferred to telemetry floor for further monitoring. Bradycardia was likely due to clonidine overdose. Blood pressure was managed with hydralazine. Dose up-titrated to bring blood pressure under control. Blood pressure stabilized. Possible episode of syncope versus seizure was probably was due to drug overdose with clonidine , as patient had bradycardia. Patient was counseled on abstinence from ETOH and smoking cessation . Patient started on nicotine patch. Sales Representative Sales Manager closely followed. Renal parameters and electrolytes were closely monitored, electrolytes corrected as needed, and nephrotoxins were avoided. Acute kidney injury resolved with hydration. Infectious disease doctor closely followed. Patient initially presented with leukocytosis , however no fever, no evidence of infection. Patient was on empiric antibiotics while in the hospital. Leukocytosis trended down to 11. Patient was discharged on empiric antibiotics . Blood culture were negative, urinalysis was negative , hepatitis panel and HIV were nonreactive. Patient clinically improved. Blood pressure and heart rate stabilized. Patient was ready for discharge home. Due to rapid and unexpected improvement in patient's condition, patient was discharged in one day. FINAL DIAGNOSES: Troponin leak Clonidine induced bradycardia- resolved Syncope versus seizure, possibly secondary to bradycardia Accelerated hypertension-resolved Acute kidney injury - resolved with hydration Nicotine dependency Leukocytosis DISCHARGE MEDICATIONS: See Medication Reconciliation list. DISCHARGE INSTRUCTIONS: Patient was discharged home. Follow up with the primary care provider this week. I have been assigned to dictate discharge summary for this account. I was not involved in the patient's management. Pat Mg NP Dec 29, 2017 15:22
--- NOTE | 2017-12-30 08:29 | Cardiology Report ---
APPROVED REPORT EKG Measurement Heart [id number] Sinus bradycardia Otherwise normal ECG
== END 2017-12-27 12:00 | disposition home or self-care (01) | DRG 812 ==
LOC: EMR 09:38 → EDBEDREQ 12:15 → EDBEDREQSVC 12:16 → EDBEDREQ 12:16 → ICU 12:47 → EDBEDREQ 13:00 → EDBEDREQSVC 13:27 → EDBEDREQ 14:15 → UNDODISIN 12-27 12:00
DX: T46.5X1A Poisoning by other antihypertensive drugs, accidental (unintentional), initial encounter (principal); N17.9 Acute kidney failure, unspecified; I27.20 Pulmonary hypertension, unspecified; R56.9 Unspecified convulsions; R00.1 Bradycardia, unspecified; Y92.009 Unspecified place in unspecified non-institutional (private) residence as the place of occurrence of the external cause; R55 Syncope and collapse; F17.200 Nicotine dependence, unspecified, uncomplicated; I34.0 Nonrheumatic mitral (valve) insufficiency; F31.9 Bipolar disorder, unspecified; Z98.1 Arthrodesis status; I10 Essential (primary) hypertension; T42.4X1A Poisoning by benzodiazepines, accidental (unintentional), initial encounter; R74.8 Abnormal levels of other serum enzymes; I45.10 Unspecified right bundle-branch block
CPT/HCPCS: 36415; 70450; 71045; 80048; 80053; 80156; 80164; 80184; 80185; 80307; 80329; 81003; 82164; 82248; 84439; 84443; 84484; 85025; 86703; 86705; 86709; 86738; 86803; 87040; 87081; 87340; 93005; 93306; 96374; 96375; 99291

== ENCOUNTER 2018-02-28 16:09 | Emergency (ER) | payer MEDICAID ==
[~2018-02-28] VITALS: Ht 177.8 cm; Wt 83.9 kg
[~2018-02-28 16:09] MED LIST changes: +ALPRAZOLAM2 MG ORAL; +AMPHETAMINE SAL15 MG PO; +CLONIDINE1000 MCG/1 EP; +XANAX0.5 MG ORAL
[2018-02-28] MEDS ORDERED: XANAX2 MG ORAL (16:32)
[2018-02-28] MEDS ORDERED: ROXICODONE15 MG ORAL (16:32)
[2018-02-28] MEDS ORDERED: ADDERALL 20 MG20 MG ORAL (16:32)
[2018-02-28] MEDS ORDERED: Ketorolac 60mg Inj IM ONE (17:00)
[2018-02-28] MEDS ORDERED: LORazepam 1mg tab ORAL ONE (17:00)
[2018-02-28 17:11] VITALS: BP 135/91
--- NOTE | 2018-02-28 17:12 | NUR ---
ED Nurse Note:pt. came for meds refill, c/o chronic pain, was given pain meds, A/ox4 ambulating with steady gait
--- NOTE | 2018-02-28 17:38 | Emergency Room Report ---
History of Present Illness General Chief Complaint: Medication Refill Source: Patient Present Illness HPI Patient presents requesting refill of his medications. He states he is run out of most of them for 5 days ago. He feels feels anxious. He also has severe left shoulder muscle spasm in the back. He denies any fevers or chills. He feels anxious. He states his been working too busy to refill his medications. Is requesting Adderall, oxycodone and Xanax. The pain is rated 8/10 burning radiating somewhat to his arm and neck. He states he was unable to fill his prescriptions or see his doctor be cause he was too busy with work. The pain is not exertional. The patient was admitted 12/26/17 for for possible seizure after he mistakenly took clonidine when he was thinking he was taking Klonopin. (History is more complex - please review record.) Patient denies fevers chills nausea vomiting. He states his stools have been somewhat loose. He denies suicidal ideation at this time but feels anxious. He denies any rashes. 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 Reviewed Nursing Documentation: PMH: Agreed; PSxH: Agreed Nursing Documentation-PMH Past Medical History: No History, Except For Hx Cardiac Problems: No - substance abuse (opioid) Hx Hypertension: No Hx Pacemaker: No Hx Asthma: No Hx COPD: No Hx Diabetes: No Hx Cancer: No Hx Gastrointestinal Problems: No Hx Dialysis: No History Of Psychiatric Problem: Yes - Bipolar Hx Neurological Problems: Yes - T12 Fusion, back surgery Hx Cerebrovascular Accident: No Hx Seizures: No Review of Systems All Other Systems: negative except mentioned in HPI Physical Exam Vital Signs Date Time Temp Pulse Resp B/P (MAP) Pulse Ox O2 Delivery O2 Flow Rate FiO2 02/28/18 16:24 98.2 105 18 135/91 95 Room Air Sp02 EP Interpretation: reviewed, normal General Appearance: well appearing, no apparent distress, GCS 15 Head: normocephalic, atraumatic Eyes: bilateral eye PERRL, bilateral eye Scleral Injection ENT: hearing grossly normal, normal voice, moist mucus membranes - No lingual macerations Neck: full range of motion, supple, no meningismus, no bony tend Respiratory: lungs clear, normal breath sounds, no respiratory distress, speaking full sentences, other - Tenderness left scapular area Cardiovascular #1: regular rate, rhythm Cardiovascular #2: 2+ radial (L) Gastrointestinal: normal inspection, normal bowel sounds Musculoskeletal: gait/station normal, normal range of motion, no calf tenderness Neurologic: alert, oriented x3, normal gait, grossly normal Psychiatric: no suicidal/homicidal ideation, anxious Skin: no rash Medical Decision Making Diagnostic Impression: Primary Impression: Muscle spasm Additional Impression: Drug-seeking behavior ER Course Patient presents with muscle spasm and pain in the left scapular area with noncompliance with his medication regimen. Differential includes muscle spasm, strain, withdrawal amongst others. Lung sounds are clear and there is no evidence of infection or pneumothorax at this time. Based on his exam pulmonary embolus is unlikely. The patient was treated with ketorolac and Ativan. He is observed. Cures is reviewed. VS and repeat exam with improved pain. The patient is pressuring for refill of all of his medications. However, his main focus is pain medication. I was going to give him Ativan as concern for the possibility of benzodiazepine withdrawal seizures. In addition my plan was to give him Tylenol and Motrin. I advised the patient I do not prescribe oxycodone and Adderall. Although he rated the pain less he states to me that the pain was unchanged. When I advised him what my plan was for analgesia he left the emergency department precipitously without discussing other treatment. Last Vital Signs Date Time Temp Pulse Resp B/P (MAP) Pulse Ox O2 Delivery O2 Flow Rate FiO2 02/28/18 18:27 98.2 76 18 135/91 95 Room Air Status: improved Disposition: ELOPED Condition: Improved Demarco Nayak MD Feb 28, 2018 17:38
[2018-02-28 18:27] VITALS: BP 135/91
--- NOTE | 2018-02-28 18:28 | NUR ---
ED Nurse Note:pt. received pain meds then he just walked out ER without notifing staff
== END 2018-02-28 18:29 | disposition left against medical advice (07) ==
LOC: EMR 17:45
DX: M62.838 Other muscle spasm (principal); Z76.5 Malingerer [conscious simulation]; F17.200 Nicotine dependence, unspecified, uncomplicated; F31.9 Bipolar disorder, unspecified; Z98.1 Arthrodesis status; Z91.14 Patient's other noncompliance with medication regimen
CPT/HCPCS: 96372; 99283

== ENCOUNTER 2018-05-21 02:03 | Emergency (ER) | payer BC, MEDICAID ==
[~2018-05-21] VITALS: Ht 177.8 cm; Wt 81.6 kg
[~2018-05-21 02:03] MED LIST changes: +ADDERALL 20 MG20 MG ORAL; +ROXICODONE15 MG ORAL; +XANAX2 MG ORAL
[2018-05-21] MEDS ORDERED: Haloperidol 5mg/ml Inj IM ONE (02:15)
[2018-05-21] MEDS ORDERED: LORazepam Inj 2mg/ml 1ml IM ONE (02:15)
--- NOTE | 2018-05-21 02:25 | NUR ---
ED Nurse Note: pt came in angry and hostile, pt was cussing at staff and swingings arms. lapd at bedside.
--- NOTE | 2018-05-21 02:25 | NUR ---
ED Nurse Note: PT CAME TO ED FROM HOME. PT HAD SELF INFLICTED CUT ON HIS HEAD PER PT "TO PROVE A A POINT" PT CALLED [employer]. PER [employer] PT HAS BEEN PLACED ON A HOLD
[2018-05-21 02:27] VITALS: BP 134/91
--- NOTE | 2018-05-21 02:33 | NUR ---
ED Nurse Note: PT ITEMS PLACED IN LOCKER #2
--- NOTE | 2018-05-21 02:36 | Emergency Room Report ---
History of Present Illness General Chief Complaint: Behavioral Complaint Source: Patient Present Illness HPI Is a 43-year-old male with history of ADHD and anxiety. He present as a 5150 hold by police. He called 911 because he cut himself. He said he receive a call from his ex- regarding his child. He had angry went to the bathroom get a razor and cut his forehead. He didn't call 911. He was angry and aggressive and police had to subdue him. He was placed in restraints and brought here. Patient not cooperative. He is yelling and cursing. He denies suicidal thoughts or homicidal thought. Allergies: Coded Allergies: No Known Allergies (Unverified , 09/21/17) Patient History Past Medical History: see triage record, old chart reviewed, psych hx Past Surgical History: other Pertinent Family History: none Social History: Denies: smoking Immunizations: other Reviewed Nursing Documentation: PMH: Agreed; PSxH: Agreed Nursing Documentation-PMH Past Medical History: No History, Except For Hx Cardiac Problems: No - substance abuse (opioid) Hx Hypertension: No Hx Pacemaker: No Hx Asthma: No Hx COPD: No Hx Diabetes: No Hx Cancer: No Hx Gastrointestinal Problems: No Hx Dialysis: No Hx Neurological Problems: Yes - T12 Fusion, back surgery Hx Cerebrovascular Accident: No Hx Seizures: No Review of Systems Eye: Denies: eye pain, blurred vision ENT: Denies: ear pain, nose congestion, throat swelling Respiratory: Denies: cough, shortness of breath Cardiovascular: Denies: chest pain, palpitations Gastrointestinal: Denies: abdominal pain, diarrhea, nausea, vomiting Musculoskeletal: Denies: back pain, joint pain Skin: Denies: rash Neurological: Denies: headache, numbness Endocrine: Denies: increased thirst, increased urine Hematologic/Lymphatic: Denies: easy bruising All Other Systems: negative except mentioned in HPI Physical Exam Vital Signs Date Time Temp Pulse Resp B/P (MAP) Pulse Ox O2 Delivery O2 Flow Rate FiO2 05/21/18 02:00 99.1 95 18 134/83 94 Room Air vitals normal Sp02 EP Interpretation: reviewed, normal General Appearance: well appearing, no apparent distress, alert Head: normocephalic, other - Very superficial incision to forehead. Nothing to be sutured Eyes: bilateral eye PERRL, bilateral eye EOMI ENT: hearing grossly normal, normal pharynx Neck: full range of motion, supple, no meningismus Respiratory: chest non-tender, lungs clear, normal breath sounds Cardiovascular #1: regular rate, rhythm, no murmur Gastrointestinal: normal bowel sounds, non tender, no mass, no organomegaly, no bruit, non-distended Musculoskeletal: back normal, gait/station normal, normal range of motion Psychiatric: other - Agitated, aggressive. Skin: warm/dry Medical Decision Making Diagnostic Impression: Primary Impression: Suicidal behavior Qualified Codes: T14.91XA - Suicide attempt, initial encounter Additional Impressions: Self-inflicted injury Alcohol intoxication Qualified Codes: F10.920 - Alcohol use, unspecified with intoxication, uncomplicated ER Course Patient presents with self-inflicted injury with possible suicide attempt. He is currently sedated and sleeping. Restraint removed. Patient placed on a 5150 by police. He is medically clear for psychiatric evaluation. Lab Results Impression labs unremarkable. Last Vital Signs Date Time Temp Pulse Resp B/P (MAP) Pulse Ox O2 Delivery O2 Flow Rate FiO2 05/21/18 02:27 120 18 Room Air 05/21/18 02:27 99.2 134/91 98 Status: improved Disposition: XFER TO PSYCH HOSP/UNIT Condition: Stable Referrals: NON PHYSICIAN (PCP) Dieter Larry MD May 21, 2018 02:36
[2018-05-21 02:40] LABS: APPEARANCE,URINE CLEAR; BILIRUBIN, URINE NEGATIVE (NEGATIVE); COLOR,URINE PALE YELLOW; GLUCOSE, URINE (UA) NEGATIVE (NEGATIVE); KETONES,URINE 1+ (NEGATIVE); LEUKOCYTE ESTERASE ,URINE NEGATIVE (NEGATIVE); NITRITE,URINE NEGATIVE (NEGATIVE); PH,URINE 6 (4.5-8.0); PROTEIN,URINE NEGATIVE (NEGATIVE); UROBILINOGEN,URINE NORMAL MG/DL (0.0-1.0)
[2018-05-21 02:47] LABS: BASOPHILS % (AUTO) 1.4 % (0.0-2.0); EOSINOPHILS % (AUTO) 3.5 % (0.0-3.0); HEMATOCRIT 46.4 % (42.0-52.0); HEMOGLOBIN 15.6 G/DL (14.2-18.0); LYMPHOCYTES % (AUTO) 26.5 % (20.0-45.0); MEAN CORPUSCULAR VOLUME 92 FL (80-99); MONOCYTES % (AUTO) 11.9 % (1.0-10.0); NEUTROPHILS % (AUTO) 56.6 % (45.0-75.0); PLATELET COUNT 252 K/UL (150-450); RED BLOOD COUNT 5.05 M/UL (4.70-6.10); RED CELL DISTRIBUTION WIDTH 11.8 % (11.6-14.8); WHITE BLOOD COUNT 6.6 K/UL (4.8-10.8)
[2018-05-21 02:49] LABS: ANION GAP 17 mmol/L (5-15); BLOOD UREA NITROGEN 16 mg/dL (7-18); CALCIUM 8.9 MG/DL (8.5-10.1); CARBON DIOXIDE 22 MMOL/L (21-32); CHLORIDE 101 MMOL/L (98-107); CREATININE 1.2 MG/DL (0.55-1.30); POTASSIUM 3.5 MMOL/L (3.5-5.1); SODIUM 140 MMOL/L (136-145)
[2018-05-21 02:56] LABS: ALANINE AMINOTRANSFERASE 35 U/L (12-78); ALBUMIN 3.6 G/DL (3.4-5.0); ALBUMIN/GLOBULIN RATIO 0.9 (1.0-2.7); ALKALINE PHOSPHATASE 102 U/L (46-116); ASPARTATE AMINO TRANSFERASE 36 U/L (15-37); BILIRUBIN,TOTAL 0.4 MG/DL (0.2-1.0)
--- NOTE | 2018-05-21 03:40 | NUR ---
ED Nurse Note: pt is resting in bed, no acute distress. vss at the moment
--- NOTE | 2018-05-21 04:45 | NUR ---
ED Nurse Note: pt was given a sandwhich and juice. pt denied food at this time. food placed on bedside
[2018-05-21 04:56] VITALS: BP 127/88
[2018-05-21 06:03] VITALS: BP 125/88
[2018-05-21] MEDS ORDERED: Bacitracin Oint UD TOPIC ONE (07:15)
--- NOTE | 2018-05-21 07:31 | NUR ---
HAND-OFF: Report given to JOHNATHON Julio.
--- NOTE | 2018-05-21 07:32 | NUR ---
ED Nurse Note: received patient in bed. Patient is easily arousable. patient is in no acute distress. VSS see flowsheet.
[2018-05-21 07:53] VITALS: BP 125/78
[2018-05-21 09:26] VITALS: BP 121/77
--- NOTE | 2018-05-21 09:31 | NUR ---
ED Nurse Note: report given to [facility] [place], ERICA DIEGO. patient is going to room 404B
[2018-05-21 10:34] VITALS: BP 121/77
--- NOTE | 2018-05-21 10:35 | NUR ---
ER DISCHARGE NOTE: Patient is medically cleared and stable for [facility] pt is aox4, on room air, with stable vital signs, ambulatory. Pt's belongings given to ambulance personnel. patient is transferred via [facility] without any complications.
== END 2018-05-21 10:25 ==
LOC: EDBD 02:03 → EMR 02:20
DX: S01.81XA Laceration without foreign body of other part of head, initial encounter (principal); X78.8XXA Intentional self-harm by other sharp object, initial encounter; Y92.009 Unspecified place in unspecified non-institutional (private) residence as the place of occurrence of the external cause; F10.120 Alcohol abuse with intoxication, uncomplicated
CPT/HCPCS: 36415; 80053; 80307; 81003; 85025; 96372; 99285; G0480; J1630; 80329

== ENCOUNTER 2018-07-22 07:41 | Emergency (ER) | payer BC, MEDICAID ==
[~2018-07-22] VITALS: Ht 175.3 cm; Wt 77.1 kg
[2018-07-22 07:51] VITALS: BP 125/86
--- NOTE | 2018-07-22 07:51 | NUR ---
ED Nurse Note: Pt brought in by ambulance d/t OD of unknwon amount of fentanyl. Pt was found on the floor by his . Initial GCS was 3, narcan 4mg given IM and second dose Narcan 4mg given IVP, Zofran 4mg IVP given IVP en route. Pt came in now AAO x4, follows commands with no respiratory distress. Noted slurring of speech and slight drowsiness. Sinus tach on environmental monitoring technician 112.
--- NOTE | 2018-07-22 08:00 | NUR ---
ED Nurse Note: Dr Moctezuma at the bed side.
--- NOTE | 2018-07-22 08:05 | Emergency Room Report ---
History of Present Illness General Chief Complaint: Overdose Source: Patient, EMS Present Illness HPI Patient is a 43-year-old male who presented after reported overdose on. Fentanyl. Patient reports having used fentanyl just prior to arrival. Patient had been given Narcan by EMS. Patient states that he had been feeling somewhat tired. Patient had previous history of opiate abuse. He denies any current symptoms. He states he feels fine at this time. Patient had brief CPR at home. Allergies: Coded Allergies: No Known Allergies (Unverified , 09/21/17) Patient History Past Medical History: see triage record Reviewed Nursing Documentation: PMH: Agreed; PSxH: Agreed Nursing Documentation-PMH Past Medical History: No History, Except For Hx Cardiac Problems: No - substance abuse (opioid) Hx Hypertension: No Hx Pacemaker: No Hx Asthma: No Hx COPD: No Hx Diabetes: No Hx Cancer: No Hx Gastrointestinal Problems: No Hx Dialysis: No History Of Psychiatric Problem: Yes - BIPOLAR, SCHIZOPHRENIA Hx Neurological Problems: Yes - T12 Fusion, back surgery Hx Cerebrovascular Accident: No Hx Seizures: No Review of Systems All Other Systems: negative except mentioned in HPI Physical Exam Vital Signs Date Time Temp Pulse Resp B/P (MAP) Pulse Ox O2 Delivery O2 Flow Rate FiO2 07/22/18 07:41 98.6 120 17 137/97 (110) 100 Room Air Sp02 EP Interpretation: reviewed, normal General Appearance: normal inspection, well appearing, no apparent distress, alert, GCS 15, non-toxic Head: normocephalic, atraumatic ENT: normal ENT inspection, hearing grossly normal, normal voice Neck: normal inspection, full range of motion, supple, no bony tend Respiratory: normal inspection, lungs clear, normal breath sounds, no respiratory distress, no retraction, no wheezing Cardiovascular #1: regular rate, rhythm, no edema Gastrointestinal: normal inspection, normal bowel sounds, non tender, soft, no guarding, no hernia Genitourinary: no CVA tenderness Musculoskeletal: normal inspection, back normal, normal range of motion Neurologic: normal inspection, alert, oriented x3, responsive, end finder twisting department III-XII nml as tested, speech normal Psychiatric: normal inspection, judgement/insight normal, mood/affect normal Skin: normal inspection, normal color, no rash Medical Decision Making Diagnostic Impression: Primary Impression: Narcotic overdose ER Course Patient presented for opiate overdose. Differential diagnosis include was not limited to long-acting opioid, medication withdrawal among others.Patient was noted to have opiate overdose. Patient states that he used a powdered fentanyl. Patient was observed in the emergency department was stable throughout stay. Patient denied any suicidal thoughts. Patient was noted to have normal mental status at the time of discharge. Patient was actually noted to be more awake at the time of discharge and when he first arrived. Patient was advised to avoid using narcotics. He was given prescription for Narcan. Patient was to follow-up with primary care physician for recheck Last Vital Signs Date Time Temp Pulse Resp B/P (MAP) Pulse Ox O2 Delivery O2 Flow Rate FiO2 07/22/18 07:51 112 19 Room Air 07/22/18 07:51 98.6 125/86 96 Status: improved Disposition: HOME, SELF-CARE Condition: Stable Scripts Naloxone HCl (Naloxone HCl) 1 Mg/1 Ml Syringe 1 MG IM PRN for overdose, #1 SYR Prov: Nik Moctezuma MD 07/22/18 Nik Moctezuma MD July 22, 2018 08:05
--- NOTE | 2018-07-22 08:15 | NUR ---
ED Nurse Note: WATER PROVIDED TO PT. DR DIVINA MANCINI FOR PT TO HAVE ORAL INTAKE.
--- NOTE | 2018-07-22 09:15 | NUR ---
ED Nurse Note: PT TALKING ON HIS PHONE IN FULL SENTENCES. SPEECH IS CLEARER AT THIS TIME. VSS.
[2018-07-22] MEDS ORDERED: NARCAN 1 MG/ML IM (09:49)
[2018-07-22 10:04] VITALS: BP 114/71
--- NOTE | 2018-07-22 10:04 | NUR ---
ER DISCHARGE NOTE: Patient is cleared to be discharged per ERMD, pt is aox4, on room air, with stable vital signs. pt was given dc and prescription instructions, pt was able to verbalize understanding, pt id band and iv site removed without complications. pt is able to ambulate with steady gait. pt took all belongings.
== END 2018-07-22 10:04 | disposition home or self-care (01) ==
LOC: EDBD 07:41 → EMR 08:01
DX: T40.4X1A Poisoning by other synthetic narcotics, accidental (unintentional), initial encounter (principal); X58.XXXA Exposure to other specified factors, initial encounter; Y92.9 Unspecified place or not applicable; F31.9 Bipolar disorder, unspecified; F20.9 Schizophrenia, unspecified; Z98.1 Arthrodesis status
CPT/HCPCS: 99282

== ENCOUNTER 2018-07-23 21:56 | Emergency (ER) | payer BC, MEDICAID ==
[~2018-07-23] VITALS: Ht 172.7 cm; Wt 72.6 kg
[~2018-07-23 21:56] MED LIST changes: +NARCAN 1 MG/ML IM
--- NOTE | 2018-07-23 21:59 | NUR ---
ED Nurse Note: Received report. Pt KAPIL, AAOx4, ambulance reported pt had taken "thumbnail" amount of fentanyl and was administered 8mg of Narcan to restore alertness and orientation. Will assess and continue to monitor.
[2018-07-23 22:20] VITALS: BP 148/74
[2018-07-24] MEDS ORDERED: Ketorolac 30mg Inj IV ONE (00:15)
--- NOTE | 2018-07-24 00:36 | NUR ---
ED Nurse Note: Blood sample sent to lab.
[2018-07-24 00:46] LABS: BASOPHILS % (AUTO) 0.6 % (0.0-2.0); EOSINOPHILS % (AUTO) 0.9 % (0.0-3.0); HEMATOCRIT 38.8 % (42.0-52.0); HEMOGLOBIN 13.7 G/DL (14.2-18.0); LYMPHOCYTES % (AUTO) 8.4 % (20.0-45.0); MEAN CORPUSCULAR VOLUME 89 FL (80-99); MONOCYTES % (AUTO) 8.9 % (1.0-10.0); NEUTROPHILS % (AUTO) 81.2 % (45.0-75.0); PLATELET COUNT 182 K/UL (150-450); RED BLOOD COUNT 4.34 M/UL (4.70-6.10); WHITE BLOOD COUNT 6.4 K/UL (4.8-10.8)
[2018-07-24 00:56] LABS: ANION GAP 5 mmol/L (5-15); BLOOD UREA NITROGEN 14 mg/dL (7-18); CALCIUM 8.3 MG/DL (8.5-10.1); CARBON DIOXIDE 33 MMOL/L (21-32); CHLORIDE 98 MMOL/L (98-107); CREATININE 0.9 MG/DL (0.55-1.30); POTASSIUM 3.4 MMOL/L (3.5-5.1); SODIUM 136 MMOL/L (136-145)
[2018-07-24 01:01] LABS: CREATINE KINASE 235 U/L (26-308)
--- NOTE | 2018-07-24 01:16 | Emergency Room Report ---
History of Present Illness General Chief Complaint: Substance Abuse Source: Patient Present Illness HPI Patient was recently here with opiate overdose Presents by paramedics after reports of overdosing on fentanyl Patient was given 8 mg of Narcan in route and has become more oriented and awake Patient is here with his female partner Who reports she had to do CPR on him Patient complains of mild headache denies any chest pain however he does have diffuse mild body ache as well Denies any homicidal or suicidal thought denies any focal weakness Allergies: Coded Allergies: No Known Allergies (Unverified , 09/21/17) Patient History Past Medical History: see triage record Pertinent Family History: none Reviewed Nursing Documentation: PMH: Agreed; PSxH: Agreed Nursing Documentation-PMH Past Medical History: No History, Except For Hx Cardiac Problems: No - substance abuse (opioid) Hx Hypertension: No Hx Pacemaker: No Hx Asthma: No Hx COPD: No Hx Diabetes: No Hx Cancer: No Hx Gastrointestinal Problems: No Hx Dialysis: No Hx Neurological Problems: Yes - T12 Fusion, back surgery Hx Cerebrovascular Accident: No Hx Seizures: No Review of Systems All Other Systems: negative except mentioned in HPI Physical Exam Vital Signs Date Time Temp Pulse Resp B/P (MAP) Pulse Ox O2 Delivery O2 Flow Rate FiO2 07/23/18 21:54 98.2 119 20 148/74 (98) 100 Room Air 07/23/18 22:20 2.0 93 Sp02 EP Interpretation: reviewed, normal General Appearance: well appearing, no apparent distress Head: normocephalic, atraumatic Eyes: bilateral eye PERRL, bilateral eye EOMI ENT: hearing grossly normal, normal pharynx, TMs + canals normal, uvula midline Neck: full range of motion, supple, no meningismus, no bony tend Respiratory: lungs clear, normal breath sounds, no rhonchi, no respiratory distress, no retraction, no accessory muscle use Cardiovascular #1: normal peripheral pulses, regular rate, rhythm, no edema, no gallop, no JVD, no murmur Gastrointestinal: normal bowel sounds, non tender, soft, no mass, no organomegaly, non-distended, no guarding, no hernia, no pulsatile mass, no rebound Genitourinary: no CVA tenderness Musculoskeletal: normal inspection Neurologic: oriented x3, responsive, operations support analyst III-XII nml as tested, motor strength/ tone normal, sensory intact Psychiatric: mood/affect normal Skin: normal color, no rash, warm/dry, palpation normal Lymphatic: normal inspection, no adenopathy Medical Decision Making Diagnostic Impression: Primary Impression: Substance abuse Additional Impression: Narcotic overdose ER Course Given the patient's history and presentation patient placed on child monitor Rhythm strip is appropriate Patient's baseline blood work is appropriate and IV hydration initiated Given the patient's quick return and repeat presentation to ER I felt further inpatient observation and evaluation was required Patient's girlfriend is here and was agreeable and patient admitted for further care At this time remains awake alert GCS 15 And has not required any further Narcan through ER Labs Test 07/24/18 00:30 White Blood Count 6.4 K/UL (4.8-10.8) Red Blood Count 4.34 M/UL (4.70-6.10) Hemoglobin 13.7 G/DL (14.2-18.0) Hematocrit 38.8 % (42.0-52.0) Mean Corpuscular Volume 89 FL (80-99) Mean Corpuscular Hemoglobin 31.5 PG (27.0-31.0) Mean Corpuscular Hemoglobin Concent 35.3 G/DL (32.0-36.0) Red Cell Distribution Width 11.0 % (11.6-14.8) Platelet Count 182 K/UL (150-450) Mean Platelet Volume 7.8 FL (6.5-10.1) Neutrophils (%) (Auto) 81.2 % (45.0-75.0) Lymphocytes (%) (Auto) 8.4 % (20.0-45.0) Monocytes (%) (Auto) 8.9 % (1.0-10.0) Eosinophils (%) (Auto) 0.9 % (0.0-3.0) Basophils (%) (Auto) 0.6 % (0.0-2.0) Sodium Level 136 MMOL/L (136-145) Potassium Level 3.4 MMOL/L (3.5-5.1) Chloride Level 98 MMOL/L (98-107) Carbon Dioxide Level 33 MMOL/L (21-32) Anion Gap 5 mmol/L (5-15) Blood Urea Nitrogen 14 mg/dL (7-18) Creatinine 0.9 MG/DL (0.55-1.30) Estimat Glomerular Filtration Rate > 60 mL/min (>60) Glucose Level 86 MG/DL (74-106) Calcium Level 8.3 MG/DL (8.5-10.1) Total Creatine Kinase 235 U/L (26-308) Rhythm Strip Diag. Results EP Interpretation: yes Rate: 88 Rhythm: NSR, no PVC's, no ectopy Chest X-Ray Diagnostic Results Chest X-Ray Diagnostic Results : Chest X-Ray Ordered: Yes # of Views/Limited/Complete: 1 View Indication: Chest Pain EP Interpretation: Yes Interpretation: no consolidation, no effusion, no pneumothorax Impression: No acute disease Electronically Signed by: Con Wolf DO Last Vital Signs Date Time Temp Pulse Resp B/P (MAP) Pulse Ox O2 Delivery O2 Flow Rate FiO2 07/24/18 00:50 98.2 07/23/18 22:20 108 27 148/74 100 Nasal Cannula 2.0 93 Status: improved Disposition: ADMITTED INPATIENT Condition: Improved Referrals: NOT CHOSEN IPA/,REFERRING (PCP) Con Wolf DO July 24, 2018 01:16
--- NOTE | 2018-07-24 02:06 | History and Physical ---
History of Present Illness General Date patient seen: July 24, 2018 Reason for Hospitalization: Substance Abuse Present Illness HPI 43 year old male/ Patient was recently here with opiate overdose. Presents by paramedics after reports of overdosing on fentanyl Patient was given 8 mg of Narcan in route and has become more oriented and awake. Patient is here with his female partner. Who reports she had to do CPR on him Patient complains of mild headache denies any chest pain however he does have diffuse mild body ache as well. Denies any homicidal or suicidal thought denies any focal weakness History both by patient and dolly. who states that she just got him on his insurance but unable to find new psychiatrist. patient mentions hx Bipolar, ADHD , Axneity, drug use, hx Vertebral fracture. states follows his PCP but does not take his othe meds. wiling to have new psychiatrist admits smoking and using IV Drugs. dolly states thank god- he does not ahve any hepatitis etc patient otherwise feels ok. no fever, chest pain or other symtpoms. agrees to stay overnight to see psychiatrist in morning. Dolly comments that she will leave early though. Allergies: Coded Allergies: No Known Allergies (Unverified , 09/21/17) Medication History Scheduled Alprazolam* (Xanax*), 2 MG ORAL BID, (Reported) Amphet Asp/Amphet/D-Amphet (Amphetamine Salts 15 Mg Tab), 30 MG PO BID, ( Reported) Amphet Asp/Amphet/D-Amphet* (Adderall 20 Mg Tablet*), 30 MG ORAL TWICE A DAY, ( Reported) Naloxone HCl (Naloxone HCl), 1 MG IM PRN Scheduled PRN Alprazolam* (Xanax*), 0.5 MG ORAL Q8H PRN OXYCODONE HCl* (Roxicodone*), 30 MG ORAL Q6H PRN for For Pain, (Reported) Patient History History Provided By: Patient, Significant Other Healthcare decision maker Resuscitation status Advanced Directive on File Review of Systems Constitutional: Reports: no symptoms Eye: Reports: no symptoms ENT: Reports: no symptoms Respiratory: Reports: no symptoms Cardiovascular: Reports: no symptoms Gastrointestinal: Reports: no symptoms Genitourinary: Reports: no symptoms Musculoskeletal: Reports: no symptoms Skin: Reports: no symptoms Psychiatric: Reports: no symptoms, other Neurological: Reports: no symptoms Endocrine: Reports: no symptoms ROS Narrative patient with ADHD, bIPOLAR with initial signs of overdose but reeresed. now largely stable exam. sleepy but esily awake. no focal symptoms. denies any infection over IV site. feels stable with prn xanax from PCP. eager to see psychaitrist Physical Exam General Appearance: WD/WN, no apparent distress, alert Lines, tubes and drains: peripheral HEENT: normocephalic, atraumatic, anicteric, mucous membranes moist, PERRL Neck: non-tender Respiratory/Chest: lungs clear, normal breath sounds Cardiovascular/Chest: normal peripheral pulses Abdomen: normal bowel sounds, non tender, soft, no organomegaly Extremities: normal range of motion, no calf tenderness Skin Exam: warm/dry, other Neurologic: ambulatory analyst II-XII grossly normal, no motor/sensory deficits, oriented x 3 Physical Exam Narrative Relatively stable exam. no gross infection over both arms/ site of iv injection. no neck rigidity. involved in discussion and interested in treatment plan Last 24 Hour Vital Signs Date Time Temp Pulse Resp B/P (MAP) Pulse Ox O2 Delivery O2 Flow Rate FiO2 07/24/18 00:50 98.2 07/24/18 00:48 98.2 07/23/18 22:20 98.2 108 27 148/74 100 Nasal Cannula 2.0 93 07/23/18 22:20 108 27 Nasal Cannula 2.0 93 07/23/18 21:54 98.2 119 20 148/74 (98) 100 Room Air Laboratory Tests Test 07/24/18 00:30 White Blood Count 6.4 K/UL (4.8-10.8) Red Blood Count 4.34 M/UL (4.70-6.10) L Hemoglobin 13.7 G/DL (14.2-18.0) L Hematocrit 38.8 % (42.0-52.0) L Mean Corpuscular Volume 89 FL (80-99) Mean Corpuscular Hemoglobin 31.5 PG (27.0-31.0) H Mean Corpuscular Hemoglobin Concent 35.3 G/DL (32.0-36.0) Red Cell Distribution Width 11.0 % (11.6-14.8) L Platelet Count 182 K/UL (150-450) Mean Platelet Volume 7.8 FL (6.5-10.1) Neutrophils (%) (Auto) 81.2 % (45.0-75.0) H Lymphocytes (%) (Auto) 8.4 % (20.0-45.0) L Monocytes (%) (Auto) 8.9 % (1.0-10.0) Eosinophils (%) (Auto) 0.9 % (0.0-3.0) Basophils (%) (Auto) 0.6 % (0.0-2.0) Sodium Level 136 MMOL/L (136-145) Potassium Level 3.4 MMOL/L (3.5-5.1) L Chloride Level 98 MMOL/L (98-107) Carbon Dioxide Level 33 MMOL/L (21-32) H Anion Gap 5 mmol/L (5-15) Blood Urea Nitrogen 14 mg/dL (7-18) Creatinine 0.9 MG/DL (0.55-1.30) Estimat Glomerular Filtration Rate > 60 mL/min (>60) Glucose Level 86 MG/DL (74-106) Calcium Level 8.3 MG/DL (8.5-10.1) L Total Creatine Kinase 235 U/L (26-308) Height (Feet): 5 Height (Inches): 8.00 Weight (Pounds): 160 Assessment/Plan Assessment/Plan: 43 yo male with hx Bipoloar, ADHD, Vertebral fracture, Opioids / fentanyl IV drug abuse- presented with multiple visits as over dose/ Fiancee had to do rescuitation. now on Fiancee insurance, who can't get new psychiatrist. plan; admit to hospital. continue monitoring for withdrawl. neuro checks Psych and SSW consult in morning wt goal to get him usual bipolar meds and help custodial SCD monitor for any respiratory symptoms/ infection. Marcio Stallworth MD July 24, 2018 02:06
--- NOTE | 2018-07-24 02:17 | NUR ---
AMA: SEE AMA FORM.
== END 2018-07-24 02:17 | disposition left against medical advice (07) ==
LOC: EDBD 21:56 → EMR 22:12 → 2W 07-24 00:55 → UNDOADMIN 07-24 00:55 → EDBEDREQ 07-24 02:07
DX: T40.601A Poisoning by unspecified narcotics, accidental (unintentional), initial encounter (principal); Y92.9 Unspecified place or not applicable
CPT/HCPCS: 36415; 80048; 82550; 85025; 96361; 96374; 99284; J1885

== ENCOUNTER 2018-09-18 10:46 | Emergency (ER) | payer BC, MEDICAID, OTHER ==
[~2018-09-18] VITALS: Ht 177.8 cm; Wt 81.6 kg
[2018-09-18 11:06] VITALS: BP 114/72
--- NOTE | 2018-09-18 11:07 | NUR ---
ED Nurse Note: pt walked in to ED due to redness on and swelling on both arms. per pt, injected himself for heroin 4 days ago. c/o pain. no drainage noted. AAO x4. respirations even and non-labored noted. will wait for the further order.
[2018-09-18] MEDS ORDERED: LORazepam Inj 2mg/ml 1ml IV ONE (11:15)
--- NOTE | 2018-09-18 11:15 | Emergency Room Report ---
History of Present Illness General Chief Complaint: Skin Rash/Abscess Source: Patient Present Illness HPI 43-year-old male presents with polysubstance abuse, he reports that he injected his right arm, and started turning a little red, it was his first time using heroin, he endorses a slight achy pain, and his right antecubital fossa, aggravated with movement alleviated with rest, he states the pain is mild, no fever no chills, he does endorse some abdominal cramps, he states he last used heroin 12 hours prior to arrival, he is trying to utilize a program, he does endorse some nausea, no diarrhea, patient thinks he started withdrawal, Allergies: Coded Allergies: No Known Allergies (Unverified , 09/21/17) Patient History Social History: Reports: smoking, alcohol use, drug use - Heroin fentanyl, ketamine Reviewed Nursing Documentation: PMH: Agreed; PSxH: Agreed Nursing Documentation-PMH Past Medical History: No History, Except For Hx Cardiac Problems: No Hx Hypertension: No Hx Pacemaker: No Hx Asthma: No Hx COPD: No Hx Diabetes: No Hx Cancer: No Hx Gastrointestinal Problems: No Hx Dialysis: No History Of Psychiatric Problem: Yes - substance abuse Hx Neurological Problems: Yes - T12 Fusion, back surgery Hx Cerebrovascular Accident: No Hx Seizures: No Review of Systems Constitutional: Denies: chills, fever Eye: Denies: blurred vision, double vision ENT: Denies: throat pain, nasal discharge Respiratory: Denies: cough, shortness of breath Cardiovascular: Reports: palpitations; Denies: chest pain Gastrointestinal: Reports: abdominal pain, nausea; Denies: diarrhea, vomiting Genitourinary: Denies: dysuria, pain Musculoskeletal: Denies: back pain, muscle pain Skin: Reports: rash; Denies: lesions Neurological: Reports: tremors; Denies: headache, focal weakness Hematologic/Lymphatic: Denies: easy bleeding, easy bruising All Other Systems: negative except mentioned in HPI Physical Exam Vital Signs Date Time Temp Pulse Resp B/P (MAP) Pulse Ox O2 Delivery O2 Flow Rate FiO2 09/18/18 10:58 99.1 145 20 114/72 (86) 97 Room Air Sp02 EP Interpretation: reviewed, normal General Appearance: well appearing, no apparent distress, alert Head: normocephalic, atraumatic Eyes: bilateral eye PERRL, bilateral eye EOMI ENT: uvula midline, moist mucus membranes Neck: supple, thyroid normal, supple/symm/no masses Respiratory: lungs clear, no respiratory distress, no retraction, no accessory muscle use Cardiovascular #1: normal peripheral pulses, no edema, no gallop, no murmur, tachycardia Gastrointestinal: non tender, soft, no guarding, no rebound Musculoskeletal: normal inspection Neurologic: alert, oriented x3 Psychiatric: anxious Skin: warm/dry, other - Right antecubital fossa, along the vein, 5 x 2 cm red lesion, no pus Medical Decision Making Diagnostic Impression: Primary Impression: Superficial thrombophlebitis Additional Impressions: Substance abuse Opioid withdrawal Cellulitis ER Course 41-year-old male presents most likely with withdrawal-like symptoms, patient with superficial thrombus phlebitis of the right arm, with possible cellulitis, will provide patient with antibiotics, will treat patient symptomatically Patient with possible cellulitis of the right forearm, will provide antibiotics, Patient with opioid withdrawal, generally uses fentanyl, patient attempted to use heroin, now redness of the right superficial vein in the antecubital fossa, most likely superficial thrombophlebitis, with possible superimposed cellulitis , patient rehydrated, patient potassium repleted, patient on reevaluation at 12: 30 PM wants to leave AGAINST MEDICAL ADVICE, he states he needs to take care of his , he is currently not under the influence The patient has requested to leave the ED against medical advice. The patient reason(s) for leaving include, but are not limited to, the following: " Take care of my , working to get into rehab". I believe this patient is of sound mind and competent to refuse medical care. The patient is responding and asking questions appropriately. The patient is oriented to person, place and time. The patient is not psychotic, delusional, suicidal, homicidal or hallucinating. The patient demonstrates a normal mental capacity to make decisions regarding their healthcare. The patient is clinically sober and does not appear to be under the influence of any illicit drugs at this time. The patient has been advised of the risks, in layman terms, of leaving AMA which include, but are not limited to , coma, permanent disability, loss of current lifestyle, delay in diagnosis. Alternatives have been offered - the patient remains steadfast in their wish to leave. The patient has been advised that should they change their mind they are welcome to return to this hospital, or any other, at any time. The patient understands that in no way does an AMA discharge mean that I do not want them to have the best medical care available. To this end, I have provided appropriate prescriptions, referrals, and discharge instructions. The patient did sign AMA paperwork. The above discussion was witnessed by another member of staff. Laboratory Tests Test 09/18/18 11:10 White Blood Count 6.0 K/UL (4.8-10.8) Red Blood Count 5.22 M/UL (4.70-6.10) Hemoglobin 16.2 G/DL (14.2-18.0) Hematocrit 46.4 % (42.0-52.0) Mean Corpuscular Volume 89 FL (80-99) Mean Corpuscular Hemoglobin 31.1 PG (27.0-31.0) H Mean Corpuscular Hemoglobin Concent 34.9 G/DL (32.0-36.0) Red Cell Distribution Width 10.9 % (11.6-14.8) L Platelet Count 217 K/UL (150-450) Mean Platelet Volume 7.1 FL (6.5-10.1) Neutrophils (%) (Auto) 69.7 % (45.0-75.0) Lymphocytes (%) (Auto) 13.7 % (20.0-45.0) L Monocytes (%) (Auto) 15.2 % (1.0-10.0) H Eosinophils (%) (Auto) 0.6 % (0.0-3.0) Basophils (%) (Auto) 0.8 % (0.0-2.0) Sodium Level 138 MMOL/L (136-145) Potassium Level 2.5 MMOL/L (3.5-5.1) *L Chloride Level 99 MMOL/L (98-107) Carbon Dioxide Level 27 MMOL/L (21-32) Anion Gap 12 mmol/L (5-15) Blood Urea Nitrogen 10 mg/dL (7-18) Creatinine 1.1 MG/DL (0.55-1.30) Estimate Glomerular Filtration Rate > 60 mL/min (>60) Glucose Level 119 MG/DL (74-106) H Calcium Level 9.4 MG/DL (8.5-10.1) Total Bilirubin 1.4 MG/DL (0.2-1.0) H Direct Bilirubin 0.2 MG/DL (0.0-0.3) Aspartate Amino Transferase (AST) 23 U/L (15-37) Alanine Aminotransferase (ALT) 16 U/L (12-78) Alkaline Phosphatase 103 U/L (46-116) Total Protein 7.9 G/DL (6.4-8.2) Albumin 3.8 G/DL (3.4-5.0) Globulin 4.1 g/dL Albumin/Globulin Ratio 0.9 (1.0-2.7) L Lipase 43 U/L (73-393) L EKG Diagnostic Results EKG Time: 11:24 EP Interpretation: Rate 118, QTc 454, no acute ST elevations, normal axis Rate: tachycardiac Rhythm: other - Sinus tachycardia ST Segments: no acute changes Rhythm Strip Diag. Results Rhythm Strip Time: 12:31 EP Interpretation: yes Rate: 127 Rhythm: other - sinus tachycardia Last Vital Signs Date Time Temp Pulse Resp B/P (MAP) Pulse Ox O2 Delivery O2 Flow Rate FiO2 09/18/18 11:06 99.1 145 20 114/72 97 Room Air Disposition: HOME, SELF-CARE Scripts Trimethoprim/Sulfamethoxazole 160/800* (BACTRIM DS TABLET*) 1 Each Tablet 1 TAB ORAL Q12H, #20 TAB 0 Refills Prov: John Sullivan MD 09/18/18 Cephalexin* (CEPHALEXIN*) 500 Mg Tablet 500 MG ORAL EVERY 6 HOURS, #40 CAP Prov: John Sullivan MD 09/18/18 Ondansetron Odt* (ZOFRAN ODT*) 8 Mg Tab.rapdis 8 MG ORAL Q6H PRN for Nausea & Vomiting, #30 TAB Prov: John Sullivan MD 09/18/18 Alprazolam* (XANAX*) 0.25 Mg Tablet 0.25 MG ORAL TID PRN for For Anxiety, #6 TAB Prov: John Sullivan MD 09/18/18 Patient Instructions: Abscess, Cellulitis, [id number], Opioid Use Disorder, Opioid Withdrawal Additional Instructions: The patient was provided with discharge instructions, notified to follow-up with a primary care doctor and or specialist in the next 24-48 hours, and to return to the ED if they have worsening of their symptoms. Please note that this report is being documented using DRAGON technology. This can lead to erroneous entry secondary to incorrect interpretation by the dictating instrument. John Sullivan MD Sep 18, 2018 11:15
[2018-09-18] MEDS ORDERED: Cephalexin 500mg cap ORAL ONE (11:30)
[2018-09-18] MEDS ORDERED: Bactrim-DS 1 tab ORAL ONE (11:30)
[2018-09-18 11:49] LABS: BASOPHILS % (AUTO) 0.8 % (0.0-2.0); EOSINOPHILS % (AUTO) 0.6 % (0.0-3.0); HEMATOCRIT 46.4 % (42.0-52.0); HEMOGLOBIN 16.2 G/DL (14.2-18.0); LYMPHOCYTES % (AUTO) 13.7 % (20.0-45.0); MEAN CORPUSCULAR VOLUME 89 FL (80-99); MONOCYTES % (AUTO) 15.2 % (1.0-10.0); NEUTROPHILS % (AUTO) 69.7 % (45.0-75.0); PLATELET COUNT 217 K/UL (150-450); RED BLOOD COUNT 5.22 M/UL (4.70-6.10); RED CELL DISTRIBUTION WIDTH 10.9 % (11.6-14.8)
[2018-09-18 11:59] LABS: ALANINE AMINOTRANSFERASE 16 U/L (12-78); ALBUMIN 3.8 G/DL (3.4-5.0); ALBUMIN/GLOBULIN RATIO 0.9 (1.0-2.7); ALKALINE PHOSPHATASE 103 U/L (46-116); ANION GAP 12 mmol/L (5-15); ASPARTATE AMINO TRANSFERASE 23 U/L (15-37); BILIRUBIN,TOTAL 1.4 MG/DL (0.2-1.0); BLOOD UREA NITROGEN 10 mg/dL (7-18); CALCIUM 9.4 MG/DL (8.5-10.1); CARBON DIOXIDE 27 MMOL/L (21-32); CHLORIDE 99 MMOL/L (98-107); CREATININE 1.1 MG/DL (0.55-1.30); SODIUM 138 MMOL/L (136-145)
[2018-09-18 12:00] VITALS: BP 128/97
[2018-09-18 12:04] LABS: BILIRUBIN,DIRECT 0.2 MG/DL (0.0-0.3); POTASSIUM 2.5 MMOL/L (3.5-5.1)
[2018-09-18] MEDS ORDERED: Morphine Sulfate 4mg/ml Inj (IV USE ONLY) IVP ONE (12:15)
[2018-09-18] MEDS ORDERED: ALPRAZOLAM0.25 MG ORAL (12:33)
[2018-09-18] MEDS ORDERED: ZOFRAN ODT8 MG ORAL (12:33)
[2018-09-18] MEDS ORDERED: BACTRIM DS TAB1 EAC1 ORAL (12:34)
[2018-09-18] MEDS ORDERED: CEPHALEXIN500 M1 ORAL (12:34)
--- NOTE | 2018-09-18 12:40 | NUR ---
ED Nurse Note: pt unable provide urine sample.
--- NOTE | 2018-09-18 13:40 | NUR ---
ED Nurse Note: per pt, "I have something to take care at home, I can not stay in hospital for overnight." Dr. Stock notified. pt wants to signed AMA.
--- NOTE | 2018-09-18 13:41 | NUR ---
ED Nurse Note: Dr. Carter explained at the bed side regarding AMA.
[2018-09-18 13:43] VITALS: BP 136/97
--- NOTE | 2018-09-18 13:43 | NUR ---
AMA: SEE AMA FORM.
--- NOTE | 2018-09-18 13:45 | NUR ---
ER DISCHARGE NOTE: pt signed AMA. pt is aox4, on room air, with stable vital signs. pt was given dc and prescription instructions, pt was able to verbalize understanding, pt id band and iv site removed without complications. pt is able to ambulate with steady gait. pt took all belongings.
== END 2018-09-18 13:45 | disposition home or self-care (01) ==
LOC: EMR 12:20 → CANBEDREQ 14:25
DX: I80.8 Phlebitis and thrombophlebitis of other sites (principal); F11.23 Opioid dependence with withdrawal; L03.113 Cellulitis of right upper limb; Z98.1 Arthrodesis status
CPT/HCPCS: 80053; 82248; 83690; 85025; 93005; 96361; 96365; 96375; 99284; J2270; J2405; J3480; J8499

== ENCOUNTER 2019-04-17 22:07 | Emergency (ER) | payer MEDICAID ==
[~2019-04-17] VITALS: Ht 177.8 cm; Wt 72.6 kg
[~2019-04-17 22:07] MED LIST changes: +ALPRAZOLAM0.25 MG ORAL; +BACTRIM DS TAB1 EAC1 ORAL; +CEPHALEXIN500 M1 ORAL; +ZOFRAN ODT8 MG ORAL
--- NOTE | 2019-04-17 22:10 | NUR ---
ED Nurse Note: pt presents to ED via EMS arrival [facility] RA 61 for overdose of an unknown substance about 30 min ago. per EMS, pt's called an ambulance because she saw him slumped over on the couch. per EMS, pt does not know what he took, does not disclose which route the drug was taken. pt is able to answer questions and follow commands but dozes off. states he "needs narcan" EMS did not give pt narcan ship captain but did start a 20 gauge IV line in pt's L hand that is patent and flushing well. pt smells of vomit, appears to have dried blood around nose and on clothing Addendum: 04/17/19 at 2227 by SOFIA pt denies SI/HI, states he was just "getting high" although he does not know what he took. EMS report that he is a "known opiate user"
--- NOTE | 2019-04-17 22:12 | Emergency Room Report ---
History of Present Illness General Chief Complaint: Overdose Source: Patient, EMS Present Illness HPI This a 44-year-old male brought in by EMS with chief complaint of drug overdose. Patient was very sluggish and had poor response for 20 minutes or so. His called 911. EMS that they run on him and his many times. Usually his drug of choice is fentanyl. He has been overdose many times. Last week he was given Narcan. Was not given Narcan today. Patient is poor historian because of his drug overdose. He is very sedated lethargic because of his drug use. He does not remember taking fentanyl. No suicidal thoughts homicidal thought. Denies any other complaint. Allergies: Coded Allergies: No Known Allergies (Unverified , 09/21/17) Patient History Past Medical History: see triage record, old chart reviewed Past Surgical History: other Pertinent Family History: none Social History: Reports: drug use Immunizations: other Reviewed Nursing Documentation: PMH: Agreed; PSxH: Agreed Nursing Documentation-PMH Hx Cardiac Problems: No Hx Hypertension: No Hx Pacemaker: No Hx Asthma: No Hx COPD: No Hx Diabetes: No Hx Cancer: No Hx Gastrointestinal Problems: No Hx Dialysis: No Hx Neurological Problems: Yes - T12 Fusion, back surgery Hx Cerebrovascular Accident: No Hx Seizures: No Review of Systems All Other Systems: limited - Secondary to his condition Physical Exam Vital Signs Date Time Temp Pulse Resp B/P (MAP) Pulse Ox O2 Delivery O2 Flow Rate FiO2 04/17/19 21:58 98.2 117 20 123/81 (95) 98 Room Air Sp02 EP Interpretation: reviewed, normal General Appearance: well appearing, no apparent distress, other - Sluggish Head: normocephalic, atraumatic Eyes: bilateral eye PERRL - Pupils 2 mm and reactive, bilateral eye EOMI ENT: hearing grossly normal, normal pharynx Neck: full range of motion, supple, no meningismus Respiratory: chest non-tender, lungs clear, normal breath sounds Cardiovascular #1: regular rate, rhythm, no murmur Gastrointestinal: normal bowel sounds, non tender, no mass, no organomegaly, no bruit, non-distended Musculoskeletal: back normal, normal range of motion Psychiatric: mood/affect normal Medical Decision Making Diagnostic Impression: Primary Impression: Drug overdose Qualified Codes: T50.901A - Poisoning by unspecified drugs, medicaments and biological substances, accidental (unintentional), initial encounter ER Course Presents with drug overdose. Most likely opioids since he responded to Narcan. He is more awake. He is talking to his on the phone. He denies taking too much opioid but he does not know. No suicidal thoughts homicidal thought. No criteria for 5150. Will discharge home. He has Narcan at home already. Last Vital Signs Date Time Temp Pulse Resp B/P (MAP) Pulse Ox O2 Delivery O2 Flow Rate FiO2 04/17/19 21:58 98.2 117 20 123/81 (95) 98 Room Air Status: improved Disposition: HOME, SELF-CARE Condition: Stable Additional Instructions: Abstain from drugs and alcohol. Follow-up with rehab. Follow-up with your doctor in 7 days. Return if worse. Dieter Larry MD Apr 17, 2019 22:12
[2019-04-17] MEDS ORDERED: Naloxone 0.4mg/ml Inj IVP ONE (22:15)
--- NOTE | 2019-04-17 22:19 | NUR ---
ED Nurse Note: RAMONA velazco # [id number] at bedside speaking with pt
[2019-04-17 22:26] VITALS: BP 123/81
[2019-04-17 23:01] VITALS: BP 123/81
--- NOTE | 2019-04-17 23:01 | NUR ---
ED Nurse Note: Pt cleared by health care Provider for discharge. DC instructions were given and explained to pt and verbalized understanding of teachings. All medical devices such as ID band and IV site removed. Pt is AAO x4, ambulatory and left with all personal belongings.
== END 2019-04-17 23:01 | disposition home or self-care (01) ==
LOC: EDBD 22:07 → EMR 22:15
DX: T50.901A Poisoning by unspecified drugs, medicaments and biological substances, accidental (unintentional), initial encounter (principal); X58.XXXA Exposure to other specified factors, initial encounter; Y92.9 Unspecified place or not applicable; Z98.1 Arthrodesis status
CPT/HCPCS: 96361; 96374; 96375; J2310; J2405; J7030; Z7502; 99284